=== PATIENT | female | born 1990 | race Caucasian/White ===

== ENCOUNTER 2016-12-13 01:33 | Emergency (ER) | payer MEDICAID ==
[2016-12-13] MEDS ORDERED: CEPHALEXIN 500 MG CAPSULE PO ONE (04:20)
[2016-12-13] MEDS ORDERED: DIPHENHYDRAMINE HCL 25 MG CAPSULE PO ONE (04:20)
[2016-12-13] MEDS ORDERED: FAMOTIDINE 20 MG TABLET PO ONE (04:20)
[2016-12-13 04:23] VITALS: BP 134/79
--- NOTE | 2016-12-13 04:23 | ER Document Report ---
HPI - HPI Patient complains to provider of: leg pain Pain Level: 2 Context: Patient is a 26-year-old female that comes emergency department for chief complaint of insect bite to her left calf area, this happened yesterday, patient states she immediately got hives of the area, states it has been itchy, states that he also had redness and some hardening to it and she became concerned. She denies any other symptoms including throat swelling, difficulty breathing, or fever, however she states that soon after she was stung or bitten she felt lightheaded and clammy. She did not see any insect, she was inside a house. Her tetanus is up-to-date. She denies any daily medications or past medical history. - CARDIOVASCULAR Cardiovascular: DENIES: Chest pain - REPRODUCTIVE LMP: 05/2016, PCOS Reproductive: DENIES: : - DERM Skin Color: Normal Past Medical History - General Information source: Patient - Social History Smoking Status: Never Smoker Chew tobacco use (# tins/day): No Frequency of alcohol use: None Drug Abuse: None Lives with: Family Family History: DM - Past Medical History Cardiac Medical History: Reports: Hx Hypertension Pulmonary Medical History: Reports: Hx Asthma Renal/ Medical History: Denies: Hx Peritoneal Dialysis Musculoskeltal Medical History: Reports Hx Arthritis Past Surgical History: Reports: Hx Gynecologic Surgery - D&C, Hx Orthopedic Surgery - lumbar disc - Immunizations Hx Diphtheria, Pertussis, Tetanus Vaccination: Yes Vertical Provider Document - CONSTITUTIONAL General Appearance: WD/WN, No Apparent Distress, Obese - INFECTION CONTROL TRAVEL OUTSIDE OF THE [place] IN LAST 30 DAYS: No - HEENT HEENT: Atraumatic, Normal ENT Exam, Normocephalic - RESPIRATORY Respiratory: Breath Sounds Normal, No Respiratory Distress O2 Sat by Pulse Oximetry: 94 - CARDIOVASCULAR Cardiovascular: Regular Rate, Regular Rhythm - GI/ABDOMEN Gastrointestinal: Abdomen Soft, Abdomen Non-Tender - BACK Back: Normal Inspection - MUSCULOSKELETAL/EXTREMETIES Musculoskeletal/Extremeties: Tender - There is an area on the left mid calf with mild erythema, small amount of raised erythematous skin (? tiny urticaria) , some excoriations over the site, no significant induration or fluctuance, normal lower extremity exam otherwise Course - Re-evaluation Re-evalutation: Patient with insect bite, slight elevation suggestive of fading hives, also has mild erythema to the area. No significant induration or fluctuance, area is suggestive of mild cellulitis with possible hives. Treating with antihistamines and Keflex as a result. Discussed follow-up, return precautions , patient states understanding and agreement - Vital Signs Vital signs: Temp Pulse Resp BP Pulse Ox 98.0 F 111 H 20 141/93 H 94 12/13/16 01:43 12/13/16 01:43 12/13/16 01:43 12/13/16 01:43 12/13/16 01:43 Discharge - Discharge Clinical Impression: Insect bite Qualifiers: Encounter type: initial encounter Qualified Code(s): W57.XXXA - Bitten or stung by nonvenomous insect and other nonvenomous arthropods, initial encounter Condition: Stable Disposition: HOME, SELF-CARE Additional Instructions: Exam is consistent with an insect sting or bite with a histamine response and questionable early cellulitis. Take the Keflex antibiotics as prescribed. The antihistamines as prescribed for 1 week. Avoid scratching the area. Primary care. Return for any concerning or worsening symptoms including increased redness, spreading redness, fever, or any other concerning symptoms. Prescriptions: Cephalexin Monohydrate [Keflex 500 mg Capsule] 500 mg PO QID #28 capsule Cetirizine HCl [Zyrtec 10 mg Tablet] 1 tab PO DAILY #30 tablet Famotidine [Pepcid 20 mg Tablet] 20 mg PO DAILY #12 tablet Forms: Parent Work Note
== END 2016-12-13 04:31 | disposition home or self-care (01) ==
LOC: ER 01:33
DX: S80.862A Insect bite (nonvenomous), left lower leg, initial encounter (principal); W57.XXXA Bitten or stung by nonvenomous insect and other nonvenomous arthropods, initial encounter; Y92.009 Unspecified place in unspecified non-institutional (private) residence as the place of occurrence of the external cause; I10 Essential (primary) hypertension; J45.909 Unspecified asthma, uncomplicated
CPT/HCPCS: 99282; J3490 ×2

== ENCOUNTER 2016-12-25 22:23 | Emergency (ER) | payer MEDICAID ==
--- NOTE | 2016-12-25 23:50 | ER Document Report ---
ED General - General Chief Complaint: Vaginal Bleeding Stated Complaint: VAGINAL BLEEDING Time Seen by Provider: 12/25/16 23:40 Notes: Patient is a 26-year-old female that comes emergency department for chief complaint of feeling tired and heavy vaginal bleeding for the past 3 weeks. She states she is feeling almost 10 had a day. She states that she had this previously, she has had extensive workups and was told that she has PCOS and needed to see a SPD TECH when she is still pending referral for. She has been transfused twice. She denies any pain, vomiting, fever, abnormal vaginal discharge. TRAVEL OUTSIDE OF THE [place] IN LAST 30 DAYS: No - Related Data Allergies/Adverse Reactions: codeine Allergy (Verified 12/13/16 01:46) Past Medical History - General Information source: Patient - Social History Smoking Status: Never Smoker Frequency of alcohol use: None Drug Abuse: None Lives with: Family Family History: DM - Past Medical History Cardiac Medical History: Reports: Hx Hypertension Pulmonary Medical History: Reports: Hx Asthma Renal/ Medical History: Denies: Hx Peritoneal Dialysis Musculoskeltal Medical History: Reports Hx Arthritis Past Surgical History: Reports: Hx Gynecologic Surgery - D&C, Hx Orthopedic Surgery - lumbar disc - Immunizations Hx Diphtheria, Pertussis, Tetanus Vaccination: Yes Review of Systems - Review of Systems Constitutional: See HPI EENT: No symptoms reported Cardiovascular: See HPI Respiratory: No symptoms reported Gastrointestinal: See HPI Genitourinary: See HPI Female Genitourinary: See HPI Musculoskeletal: No symptoms reported Skin: No symptoms reported Hematologic/Lymphatic: No symptoms reported Neurological/Psychological: No symptoms reported Physical Exam - Vital signs Vitals: Temp Pulse Resp BP Pulse Ox 98.8 F 108 H 20 149/102 H 99 12/25/16 22:47 12/25/16 22:47 12/25/16 22:47 12/25/16 22:47 12/25/16 22:47 Interpretation: Normal - General General appearance: Appears well, Alert In distress: None - HEENT Head: Normocephalic, Atraumatic Eyes: Normal Pupils: PERRL - Respiratory Respiratory status: No respiratory distress Chest status: Nontender Breath sounds: Normal. No: Decreased air movement, Wheezing Chest palpation: Normal - Cardiovascular Rhythm: Regular. No: Tachycardia - Patient is not tachycardic on my examination Heart sounds: Normal auscultation, S1 appreciated, S2 appreciated Murmur: No - Abdominal Inspection: Normal Distension: No distension Bowel sounds: Normal Tenderness: Nontender. No: Tender, Guarding - Soft and unremarkable abdominal examination Organomegaly: No organomegaly - Back Back: Normal, Nontender - Extremities General upper extremity: Normal inspection, Nontender, Normal color, Normal ROM , Normal temperature General lower extremity: Normal inspection, Nontender, Normal color, Normal ROM , Normal temperature, Normal weight bearing. No: Ty's sign - Neurological Neuro grossly intact: Yes Cognition: Normal Orientation: AAOx4 [place] Coma Scale Eye Opening: Spontaneous Rahul Coma Scale Verbal: Oriented [place] Coma Scale Motor: Obeys Commands [place] Coma Scale Total: 15 Speech: Normal Motor strength normal: LUE, RUE, LLE, RLE Sensory: Normal - Psychological Associated symptoms: Normal affect, Normal mood - Skin Skin Temperature: Warm Skin Moisture: Dry Skin Color: Normal Course - Re-evaluation Re-evalutation: CBC shows microcytic anemia with hemoglobin of 10.2. Mild leukocytosis, nonspecific with unremarkable vital signs, soft abdomen, and well-appearing patient. Urinalysis unremarkable. Chemistry unremarkable. Patient declines any additional evaluation, states she has had all of it before, states she was just here to get her hemoglobin checked for potential transfusion. Patient declines hormonal therapy to stop bleeding as well. She does agree to iron replacement therapy to help maintain her hemoglobin, states she will follow-up with SPD TECH, states she will return if she worsens. - Vital Signs Vital signs: Temp Pulse Resp BP Pulse Ox 98.8 F 78 18 137/87 H 98 12/25/16 22:47 12/26/16 01:23 12/26/16 01:23 12/26/16 01:23 12/26/16 01:23 - Laboratory Result Diagrams: 12/26/16 00:10 12/26/16 00:10 Laboratory results interpreted by me: 12/25/16 12/26/16 23:55 00:10 WBC 14.8 H Hgb 10.2 L Hct 33.3 L MCV 67 L MCH 20.5 L MCHC 30.7 L RDW 18.6 H Absolute Neutrophils 8.9 H Absolute Lymphocytes 4.8 H Urine Protein 30 H Urine Blood LARGE H Discharge - Discharge Clinical Impression: Vaginal bleeding Anemia Qualifiers: Anemia type: unspecified type Qualified Code(s): D64.9 - Anemia, unspecified Condition: Stable Disposition: HOME, SELF-CARE Additional Instructions: Your workup shows a hemoglobin of 10.2. Begin the iron, follow up with OBGYN. Return to the ED for any concerning or worsening symptoms - dizziness, passing out, fever, etc. Prescriptions: Ferrous Sulfate [Iron] 325 mg PO TID #30 tablet
[2016-12-26 00:33] LABS: APPEARANCE,URINE SLIGHTLY-CLOUDY; BILIRUBIN,URINE NEGATIVE (NEGATIVE); CALCIUM OXALATE CRYSTALS,URINE MANY /HPF; GLUCOSE, URINE NEGATIVE (NEGATIVE); KETONES,URINE NEGATIVE (NEGATIVE); LEUKOCYTE ESTERASE,URINE NEGATIVE (NEGATIVE); NITRITE,URINE NEGATIVE (NEGATIVE); PROTEIN,URINE 30 mg/dL (NEGATIVE); UROBILINOGEN,URINE NEGATIVE mg/dL (<2.0)
[2016-12-26 00:41] LABS: ABSOLUTE BASOPHILS # (AUTO) 0.1 10^3/uL (0.0-0.2); ABSOLUTE EOSINOPHILS # (AUTO) 0.3 10^3/uL (0.0-0.6); ABSOLUTE LYMPHOCYTES (AUTO) 4.8 10^3/uL (0.5-4.7); ABSOLUTE MONOCYTES (AUTO) 0.8 10^3/uL (0.1-1.4); ABSOLUTE NEUT (AUTO) 8.9 10^3/uL (1.7-8.2); BASOPHILS % (AUTO) 0.4 % (0-2); HEMATOCRIT 33.3 % (36.0-47.0); HEMOGLOBIN 10.2 g/dL (12.0-15.5); HGB HCT DIFFERENCE -2.7; LYMPHOCYTES % (AUTO) 32.2 % (13-45); MEAN CORPUSCULAR HEMOGLOBIN 20.5 pg (27.0-33.4); MEAN CORPUSCULAR HGB CONC 30.7 g/dL (32.0-36.0); MEAN CORPUSCULAR VOLUME 67 fl (80-97); MONOCYTES % (AUTO) 5.4 % (3-13); RED BLOOD COUNT 4.98 10^6/uL (3.72-5.28); RED CELL DISTRIBUTION WIDTH 18.6 % (11.5-14.0); WHITE BLOOD COUNT 14.8 10^3/uL (4.0-10.5)
[2016-12-26 00:51] LABS: ALANINE AMINOTRANSFERASE 22 U/L (9-52); ALBUMIN 3.7 g/dL (3.5-5.0); ALKALINE PHOSPHATASE 71 U/L (38-126); ANION GAP 11 (5-19); ASPARTATE AMINO TRANSFERASE 15 U/L (14-36); BILIRUBIN,DIRECT 0.3 mg/dL (0.0-0.4); BILIRUBIN,TOTAL 0.3 mg/dL (0.2-1.3); BLOOD UREA NITROGEN 10 mg/dL (7-20); CALCIUM 9.1 mg/dL (8.4-10.2); CARBON DIOXIDE 23 mmol/L (22-30); CHLORIDE 106 mmol/L (98-107); CREATININE RESULT 0.68 mg/dL (0.52-1.25); GLUCOSE 107 mg/dL (75-110); POTASSIUM 4.1 mmol/L (3.6-5.0); SODIUM 139.9 mmol/L (137-145); TOTAL PROTEIN 6.8 g/dL (6.3-8.2)
[2016-12-26 01:24] VITALS: BP 137/87
== END 2016-12-26 01:22 | disposition home or self-care (01) ==
LOC: ER 22:23
DX: N93.9 Abnormal uterine and vaginal bleeding, unspecified (principal); D50.9 Iron deficiency anemia, unspecified; D72.829 Elevated white blood cell count, unspecified; R53.83 Other fatigue; I10 Essential (primary) hypertension; J45.909 Unspecified asthma, uncomplicated
CPT/HCPCS: 36415; 80053; 81001; 81025; 85025; 99284

== ENCOUNTER 2016-12-31 23:19 | Emergency (ER) | payer MEDICAID ==
--- NOTE | 2017-01-01 01:24 | ER Document Report ---
ED Medical Screen (RME) - General Chief Complaint: Vaginal Bleeding Stated Complaint: VAGINAL BLEEDING Time Seen by Provider: 01/01/17 01:22 Mode of Arrival: Wheelchair Information source: Patient Notes: 26-year-old female presents to ED for menstrual bleeding 1 month. She states she has been to her PCN who is supposed to be making a referral to women's healthcare. She states that this happened before lasted about 5 months and she did not get the referral and she ended up needing 2 units of blood transfused. She said she is starting to feel the same way again she is feeling lightheaded. She states she was in the ER last week and her hemoglobin was 10.2. She states she has been going through about 12 pads a day with large clot and she is beginning to get more and more tired. I have greeted and performed a rapid initial assessment of this patient. A comprehensive ED assessment and evaluation of the patient, analysis of test results and completion of medical decision making process will be conducted by an additional ED providers. TRAVEL OUTSIDE OF THE [place] IN LAST 30 DAYS: No - Related Data Allergies/Adverse Reactions: codeine Allergy (Verified 01/01/17 00:16) Past Medical History - Past Medical History Cardiac Medical History: Reports: Hx Hypertension Pulmonary Medical History: Reports: Hx Asthma Renal/ Medical History: Denies: Hx Peritoneal Dialysis Musculoskeltal Medical History: Reports Hx Arthritis Past Surgical History: Reports: Hx Gynecologic Surgery - D&C, Hx Orthopedic Surgery - lumbar disc - Immunizations Hx Diphtheria, Pertussis, Tetanus Vaccination: Yes Physical Exam - Vital signs Vitals: Temp Pulse Resp BP Pulse Ox 97.8 F 94 16 134/96 H 100 01/01/17 00:10 01/01/17 00:10 01/01/17 00:10 01/01/17 00:10 01/01/17 00:10 Course - Vital Signs Vital signs: Temp Pulse Resp BP Pulse Ox 97.8 F 94 16 134/96 H 100 01/01/17 00:10 01/01/17 00:10 01/01/17 00:10 01/01/17 00:10 01/01/17 00:10
[2017-01-01 02:24] LABS: ALANINE AMINOTRANSFERASE 26 U/L (9-52); ALBUMIN 3.8 g/dL (3.5-5.0); ALKALINE PHOSPHATASE 70 U/L (38-126); ANION GAP 12 (5-19); ASPARTATE AMINO TRANSFERASE 15 U/L (14-36); BILIRUBIN,DIRECT 0.3 mg/dL (0.0-0.4); BILIRUBIN,TOTAL 0.4 mg/dL (0.2-1.3); BLOOD UREA NITROGEN 10 mg/dL (7-20); CALCIUM 9.2 mg/dL (8.4-10.2); CARBON DIOXIDE 22 mmol/L (22-30); CHLORIDE 105 mmol/L (98-107); CREATININE RESULT 0.74 mg/dL (0.52-1.25); GLUCOSE 100 mg/dL (75-110); POTASSIUM 4.6 mmol/L (3.6-5.0); SODIUM 138.7 mmol/L (137-145)
[2017-01-01 02:27] LABS: ABSOLUTE EOSINOPHILS # (AUTO) 0.3 10^3/uL (0.0-0.6); ABSOLUTE LYMPHOCYTES (AUTO) 3.9 10^3/uL (0.5-4.7); ABSOLUTE MONOCYTES (AUTO) 0.7 10^3/uL (0.1-1.4); ABSOLUTE NEUT (AUTO) 7.4 10^3/uL (1.7-8.2); BASOPHILS % (AUTO) 0.3 % (0-2); EOSINOPHILS % (AUTO) 2.8 % (0-6); HEMATOCRIT 31.3 % (36.0-47.0); HEMOGLOBIN 9.5 g/dL (12.0-15.5); HGB HCT DIFFERENCE -2.8; LYMPHOCYTES % (AUTO) 31.6 % (13-45); MEAN CORPUSCULAR HEMOGLOBIN 20.6 pg (27.0-33.4); MEAN CORPUSCULAR HGB CONC 30.5 g/dL (32.0-36.0); MEAN CORPUSCULAR VOLUME 68 fl (80-97); MONOCYTES % (AUTO) 5.3 % (3-13); RED BLOOD COUNT 4.63 10^6/uL (3.72-5.28); RED CELL DISTRIBUTION WIDTH 18.8 % (11.5-14.0); WHITE BLOOD COUNT 12.3 10^3/uL (4.0-10.5)
--- NOTE | 2017-01-01 03:31 | ER Document Report ---
ED GI/ - General Chief Complaint: Vaginal Bleeding Stated Complaint: VAGINAL BLEEDING Time Seen by Provider: 01/01/17 01:22 Mode of Arrival: Wheelchair Information source: Patient Notes: 26-year-old female presents to ED for menstrual bleeding 1 month. She states she has been to PCM who is supposed to be making a referral to [facility]. She states this has happened before and lasted about 5 months the last time. She states she never did get a referral to women's healthcare last time or this time. She states she starting to feel the same way she did the last time when she need blood transfusions. She has had this bleeding this time for about a month. She states that she was in the emergency room a week ago and her hemoglobin was 10.2. She states today she has been saturating about 12-13 pad with large clots. TRAVEL OUTSIDE OF THE [place] IN LAST 30 DAYS: No - HPI Patient complains to provider of: Pelvic pain, Vaginal bleeding Onset: Other - Month Timing/Duration: Intermittent Quality of pain: Cramping Severity at maximum: Severe Severity in ED: Moderate Pain Level: 3 Location: Pelvis Vaginal bleeding (Compared to normal period): Heavier Menstrual period history: Abnormal Associated symptoms: Lightheaded, Other - Fatigue Exacerbated by: Movement Relieved by: Denies Similar symptoms previously: Yes Recently seen / treated by doctor: Yes - Related Data Allergies/Adverse Reactions: codeine Allergy (Verified 01/01/17 00:16) Past Medical History - General Information source: Patient - Social History Smoking Status: Current Every Day Smoker Cigarette use (# per day): Yes - Half pack per day Chew tobacco use (# tins/day): No Smoking Education Provided: Yes - less than 1 minute Frequency of alcohol use: None Drug Abuse: None Occupation: none Lives with: Family Family History: Arthritis, CAD, COPD, CVA, DM, Hyperlipidemia, Hypertension. denies: Malignancy, Thyroid Disfunction Patient has suicidal ideation: No Patient has homicidal ideation: No - Past Medical History Cardiac Medical History: Reports: Hx Hypertension Pulmonary Medical History: Reports: Hx Asthma EENT Medical History: Reports: None Neurological Medical History: Reports: None Endocrine Medical History: Reports: None Renal/ Medical History: Reports: Hx Ovarian Cysts, Other - Abnormal menstrual periods Malignancy Medical History: Reports: None GI Medical History: Reports: None Musculoskeltal Medical History: Reports Hx Arthritis Skin Medical History: Reports None Psychiatric Medical History: Reports: None Traumatic Medical History: Reports: None Infectious Medical History: Reports: None Past Surgical History: Reports: Hx Gynecologic Surgery - D&C, Hx Orthopedic Surgery - lumbar disc - Immunizations Hx Diphtheria, Pertussis, Tetanus Vaccination: Yes Review of Systems - Review of Systems Constitutional: No symptoms reported EENT: No symptoms reported Cardiovascular: No symptoms reported Respiratory: No symptoms reported Gastrointestinal: No symptoms reported Genitourinary: No symptoms reported Female Genitourinary: Heavy/abnormal periods, Irregular period, Vaginal bleeding Musculoskeletal: No symptoms reported Skin: No symptoms reported Hematologic/Lymphatic: No symptoms reported Neurological/Psychological: No symptoms reported Physical Exam - Vital signs Vitals: Temp Pulse Resp BP Pulse Ox 97.8 F 94 16 134/96 H 100 01/01/17 00:10 01/01/17 00:10 01/01/17 00:10 01/01/17 00:10 01/01/17 00:10 Interpretation: Normal - General General appearance: Appears well, Alert - HEENT Head: Normocephalic, Atraumatic Eyes: Normal Pupils: PERRL - Respiratory Respiratory status: No respiratory distress Chest status: Nontender Breath sounds: Normal Chest palpation: Normal - Cardiovascular Rhythm: Regular Heart sounds: Normal auscultation Murmur: No - Abdominal Inspection: Normal Distension: No distension Bowel sounds: Normal Tenderness: Tender Organomegaly: No organomegaly - Back Back: Normal, Nontender - Extremities General upper extremity: Normal inspection, Nontender, Normal color, Normal ROM , Normal temperature General lower extremity: Normal inspection, Nontender, Normal color, Normal ROM , Normal temperature, Normal weight bearing. No: Ty's sign - Neurological Neuro grossly intact: Yes Cognition: Normal Orientation: AAOx4 Rahul Coma Scale Eye Opening: Spontaneous [place] Coma Scale Verbal: Oriented [place] Coma Scale Motor: Obeys Commands [place] Coma Scale Total: 15 Speech: Normal Motor strength normal: LUE, RUE, LLE, RLE Sensory: Normal - Psychological Associated symptoms: Normal affect, Normal mood - Skin Skin Temperature: Warm Skin Moisture: Dry Skin Color: Normal Course - Vital Signs Vital signs: Temp Pulse Resp BP Pulse Ox 97.8 F 86 20 130/90 H 99 01/01/17 00:10 01/01/17 03:52 01/01/17 03:52 01/01/17 03:52 01/01/17 03:52 - Laboratory Result Diagrams: 01/01/17 01:35 01/01/17 01:35 Laboratory results interpreted by me: 01/01/17 01:35 WBC 12.3 H Hgb 9.5 L Hct 31.3 L MCV 68 L MCH 20.6 L MCHC 30.5 L RDW 18.8 H Discharge - Discharge Clinical Impression: Vaginal bleeding Condition: Stable Disposition: HOME, SELF-CARE Additional Instructions: VAGINAL BLEEDING: You are having an episode of abnormal bleeding. Causes of abnormal vaginal bleeding can include miscarriage or tubal , tumors such as cancer or benign fibroids, medication effects, or hormone imbalance. Testing can eliminate unsuspected , tumors, or infection as a cause. "Dysfunctional uterine bleeding" is due to hormone imbalance, and is especially common at times when the normal cycle is disturbed -- whether by recent , use of control pills or hormones, or impending menopause. If the bleeding is innocent, most commonly a short course of hormones is given to restore the uterus to normal. Sometimes, the normal menstrual cycle corrects itself naturally. Sometimes , brief hormone therapy, or even a D&C is required. Your physician will advise you. Treatment for anemia may be required if bleeding is severe. You should rest and avoid intercourse until the bleeding is controlled. Call the doctor or return for re-examination if you feel faint, have increasing pain, or have a major increase in the amount of bleeding. Acetaminophen Acetaminophen may be taken for pain relief or fever control. It's much safer than aspirin, offering a wider range of "safe" dosages. It is safe during . Some brand names are Tylenol, Panadol, Datril, Anacin 3, Tempra, and Liquiprin. Acetaminophen can be repeated every four hours. The following are maximum recommended dosages: WEIGHT Dose Drops Elixir Chewable( 80mg) (LBS.) drprs=droppers tsp=teaspoon 6 40 mg .4 ml (1/2) 6-11 80 mg .8 ml (full) 1/2 tsp 1 tab 12-16 120 mg 1 1/2 drprs 3/4 tsp 1 1/2 tabs 17-23 160 mg 2 drprs 1 tsp 2 tabs 24-30 240 mg 3 drprs 1 1/2 tsp 3 tabs 30-35 320 mg 2 tsp 4 tabs 36-41 360 mg 2 1/4 tsp 4 1 /2 tabs 42-47 400 mg 2 1/2 tsp 5 tabs 48-53 480 mg 3 tsp 6 tabs 54-59 520 mg 3 1/4 tsp 6 1 /2 tabs 60-64 560 mg 3 1/2 tsp 7 tabs 65-70 600 mg 3 3/4 tsp 7 1 /2 tabs 71-76 640 mg 4 tsp 8 tabs 77-82 720 mg 4 1/2 tsp 9 tabs 83-88 800 mg 5 tsp 10 tabs >89 pounds or adults 650 mg to 900 mg Acetaminophen can be repeated every four hours. Maximum daily dose not to exceed 4000 mg. These maximum recommended dosages are slightly higher than the dosages written on the product container, but these dosages are very safe and well below the toxic dosage for acetaminophen. NORMAL EXAM AND WORKUP: At this time, except for vaginal bleeding, your examination and workup show no significant abnormality. No significant abnormal physical findings were noted. All laboratory, EKG, and imaging (x-ray, CT scans, ultrasound) studies that were ordered show no significant abnormality. Although your examination and all studies that were ordered showed no significant abnormal finding, there are no examinations and no studies that are 100% accurate. There is always the possibility that some abnormality could exist and not be detected with physical examination or within the limits and capabilities of laboratory and other studies. You should return or follow up as you were instructed on your visit today for further evaluation if your symptoms do not resolve. Discussed with you in a written copy of the report given to you to follow-up with your primary doctor. He will need to follow-up with [facility] [employer] PROF[employer]OR for this continued vaginal bleeding. Call your primary doctor in the morning and discussed these results with her. FOLLOW-UP CARE: If you have been referred to a physician for follow-up care, call the physician s office for an appointment as you were instructed or within the next two days. If you experience worsening or a significant change in your symptoms (very heavy bleeding with large clots of blood, passage of tissue, more severe abdominal / pelvic pain or cramping, feeling faint or severe weakness, fever, etc.), notify the physician immediately or return to the Emergency Department at any time for re-evaluation. OBSTETRIC-GYNECOLOGIC (OB-PATTERN ASSEMBLER) PHYSICIANS IN [place]: [facility] [address] [place] [address] [phone] Forms: Elevated Blood Pressure, Smoking Cessation Education Referrals: KIM GARCIA PA-C [NO LOCAL MD] - Follow up as needed
[2017-01-01 03:53] VITALS: BP 130/90
== END 2017-01-01 03:52 | disposition home or self-care (01) ==
LOC: ER 23:19
DX: N92.1 Excessive and frequent menstruation with irregular cycle (principal); R10.2 Pelvic and perineal pain; R42 Dizziness and giddiness; R53.83 Other fatigue; I10 Essential (primary) hypertension; J45.909 Unspecified asthma, uncomplicated; F17.210 Nicotine dependence, cigarettes, uncomplicated; Z71.6 Tobacco abuse counseling; Z87.42 Personal history of other diseases of the female genital tract; Z98.890 Other specified postprocedural states
CPT/HCPCS: 36415; 80053; 84703; 85025; 99284

== ENCOUNTER 2017-01-06 20:34 | Emergency (ER) | payer MEDICAID ==
[2017-01-06 22:10] LABS: ABSOLUTE EOSINOPHILS # (AUTO) 0.2 10^3/uL (0.0-0.6); ABSOLUTE MONOCYTES (AUTO) 0.5 10^3/uL (0.1-1.4); ABSOLUTE NEUT (AUTO) 8.1 10^3/uL (1.7-8.2); BASOPHILS % (AUTO) 0.5 % (0-2); EOSINOPHILS % (AUTO) 1.8 % (0-6); HEMATOCRIT 28.3 % (36.0-47.0); HEMOGLOBIN 8.6 g/dL (12.0-15.5); HGB HCT DIFFERENCE -2.5; LYMPHOCYTES % (AUTO) 18.2 % (13-45); MEAN CORPUSCULAR HEMOGLOBIN 20.7 pg (27.0-33.4); MEAN CORPUSCULAR HGB CONC 30.5 g/dL (32.0-36.0); MEAN CORPUSCULAR VOLUME 68 fl (80-97); MONOCYTES % (AUTO) 4.9 % (3-13); RED BLOOD COUNT 4.17 10^6/uL (3.72-5.28); RED CELL DISTRIBUTION WIDTH 18.8 % (11.5-14.0); SEGMENTED NEUTROPHILS % (AUTO) 74.6 % (42-78); WHITE BLOOD COUNT 10.9 10^3/uL (4.0-10.5)
[2017-01-06 22:24] LABS: ANION GAP 9 (5-19); BLOOD UREA NITROGEN 6 mg/dL (7-20); CALCIUM 9.1 mg/dL (8.4-10.2); CARBON DIOXIDE 23 mmol/L (22-30); CHLORIDE 106 mmol/L (98-107); CREATININE RESULT 0.64 mg/dL (0.52-1.25); GLUCOSE 106 mg/dL (75-110); POTASSIUM 3.9 mmol/L (3.6-5.0); SODIUM 138.1 mmol/L (137-145)
--- NOTE | 2017-01-06 22:51 | ER Document Report ---
ED General - General Chief Complaint: Vaginal Bleeding Stated Complaint: VAGINAL BLEEDING Time Seen by Provider: 01/06/17 22:10 Notes: Patient is a 26-year-old female with past medical history of morbid obesity, polycystic ovarian syndrome, dysfunctional uterine bleeding who presents with 1 month of vaginal bleeding. She has been evaluated repeatedly in the emergency department for the same complaint with a downtrending of her hemoglobin. She has had similar presentations in the past that have required blood transfusions. States that she has tried control pills as well as a D&C in the past which have not been able to control her persistent vaginal bleeding. She does note a mild, dull, cramping lower abdominal pain which is unchanged today. States she is going through approximately 10 pads daily but has not gone through more than 2 pads an hour at any point. She denies any lightheadedness or syncope. She is currently taking iron supplementation. She has not seen [facility] regarding today's concerns. She does also complain of a bilateral throat pain that is dull, scratching and irritating. She is requesting that this also be evaluated while she is here. TRAVEL OUTSIDE OF THE [place] IN LAST 30 DAYS: No - Related Data Allergies/Adverse Reactions: codeine Allergy (Verified 01/06/17 20:54) Past Medical History - General Information source: Patient - Social History Smoking Status: Never Smoker Frequency of alcohol use: None Drug Abuse: None Lives with: Spouse/Significant other Family History: Arthritis, CAD, COPD, CVA, DM, Hyperlipidemia, Hypertension. denies: Malignancy, Thyroid Disfunction - Past Medical History Cardiac Medical History: Reports: Hx Hypertension Pulmonary Medical History: Reports: Hx Asthma Renal/ Medical History: Reports: Hx Ovarian Cysts. Denies: Hx Peritoneal Dialysis Musculoskeltal Medical History: Reports Hx Arthritis Past Surgical History: Reports: Hx Gynecologic Surgery - D&C, Hx Orthopedic Surgery - lumbar disc - Immunizations Hx Diphtheria, Pertussis, Tetanus Vaccination: Yes Review of Systems - Review of Systems Notes: Constitutional: Negative for fever. HENT: Positive for sore throat. Eyes: Negative for visual changes. Cardiovascular: Negative for chest pain. Respiratory: Negative for shortness of breath. Gastrointestinal: Negative for abdominal pain, vomiting or diarrhea. Genitourinary: Positive for vaginal bleeding Musculoskeletal: Negative for back pain. Skin: Negative for rash. Neurological: Negative for headaches, weakness or numbness. 10 point ROS negative except as marked above and in HPI. Physical Exam - Vital signs Vitals: Temp Pulse Resp BP Pulse Ox 97.9 F 95 19 138/76 H 96 01/07/17 00:18 01/07/17 00:18 01/07/17 00:18 01/07/17 00:18 01/07/17 00:18 Interpretation: Normal Notes: PHYSICAL EXAMINATION: GENERAL: Morbidly obese female well-appearing, well-nourished and in no acute distress. HEAD: Atraumatic, normocephalic. EYES: Pupils equal round and reactive to light, extraocular movements intact, sclera anicteric, conjunctiva are normal. ENT: nares patent, bilateral tonsillar exudates and mild hypertrophy. NECK: Normal range of motion, bilateral anterior cervical lymphadenopathy that is tender to palpation LUNGS: Breath sounds clear to auscultation bilaterally and equal. No wheezes rales or rhonchi. HEART: Regular rate and rhythm without murmurs ABDOMEN: Soft, nontender, normoactive bowel sounds. No guarding, no rebound. No masses appreciated. EXTREMITIES: Normal range of motion, no pitting or edema. No cyanosis. NEUROLOGICAL: No focal neurological deficits. Moves all extremities spontaneously and on command. PSYCH: Normal mood, normal affect. SKIN: Warm, Dry, normal turgor, no rashes or lesions noted. Course - Re-evaluation Re-evalutation: 01/06/17 22:50 Presentation is most consistent with dysfunctional uterine bleeding and otherwise well-appearing patient. Hemoglobin has continued to downtrend to 8.6 at this time. States she has failed oral control pills in the past as well as a D&C per her report. She is not . No tachycardia or hypotension. Examination is otherwise unremarkable. She denies bleeding through more than 2 pads an hour at any point in time. She does have scant vaginal bleeding at this time which she states has been baseline. Patient did also complain of a sore throat. Rapid strep is negative. History and exam are not consistent with a retropharyngeal abscess or peritonsillar abscess. Airway is patent. No difficulty handling oral secretions. Vitals within normal limits. Will also start the patient on a dose of oral control pills , restart her metformin for PCOS. I have discussed the case with Dr. Bah [employer] on-call who has requested the patient follow-up in the office on Sunday and I have asked the patient to contact clinic for an appointment. At this time will discharge with return precautions and follow-up recommendations. Verbal discharge instructions given a the bedside and opportunity for questions given. Medication warnings reviewed. Patient is in agreement with this plan and has verbalized understanding of return precautions and the need for primary care follow-up in the next 24-72 hours. - Vital Signs Vital signs: Temp Pulse Resp BP Pulse Ox 97.9 F 95 19 138/76 H 96 01/07/17 00:18 01/07/17 00:18 01/07/17 00:18 01/07/17 00:18 01/07/17 00:18 - Laboratory Result Diagrams: 01/06/17 21:55 01/06/17 21:55 Laboratory results interpreted by me: 01/06/17 01/06/17 21:55 21:55 WBC 10.9 H Hgb 8.6 L Hct 28.3 L MCV 68 L MCH 20.7 L MCHC 30.5 L RDW 18.8 H BUN 6 L Discharge - Discharge Clinical Impression: Sore throat, Dysfunctional uterine bleeding Condition: Good Disposition: HOME, SELF-CARE Additional Instructions: You were seen today for dysfunctional uterine bleeding. This is when you have vaginal bleeding and abdominal cramping off of your normal menstrual cycle. You have been started on control pills to help regulate your cycle and control your symptoms. Please call the women's clinic on Sunday and tell them that Dr. Bah requested that you be seen early next week. Return immediately if you worsening pain, you began bleeding through more than 2 pads per hour for more than 3 hours, you pass out, have persistent vomiting, develop a fever greater than 100.4F, or any other symptoms that are concerning to you. Prescriptions: Metformin HCl 500 mg PO BID #60 tablet Norgestimate-Ethinyl Estradiol [Sprintec 28 Day Tablet] 1 each PO DAILY #2 packet
[2017-01-07 00:19] VITALS: BP 138/76
== END 2017-01-07 00:18 | disposition home or self-care (01) ==
LOC: ER 20:34
DX: J02.9 Acute pharyngitis, unspecified (principal); N93.8 Other specified abnormal uterine and vaginal bleeding
CPT/HCPCS: 36415; 80048; 84703; 85025; 87070; 87077; 87880; 99284

== ENCOUNTER 2017-01-07 22:18 | Emergency (ER) | payer MEDICAID ==
--- NOTE | 2017-01-07 23:57 | ER Document Report ---
ED General - General Chief Complaint: Vaginal Bleeding Stated Complaint: VAGINAL BLEEDING Time Seen by Provider: 01/07/17 23:45 Notes: Patient is a 26-year-old female who comes emergency department for chief complaint of vaginal bleeding and an episode of syncope. She states that she got into a truck, she was feeling lightheaded when she got in, and she passed out for a couple of minutes. Significant other at bedside states he saw her " go out for a couple of minutes". She states that when she stands she feels lightheaded. She has had ongoing dysfunctional uterine bleeding for over a month, this is not new for her, she has a history of PCOS. she was evaluated here yesterday, told to follow-up with [facility] on Sunday, was prescribed Sprintec and metformin which she has not filled yet. TRAVEL OUTSIDE OF THE [place] IN LAST 30 DAYS: No - Related Data Allergies/Adverse Reactions: codeine Allergy (Verified 01/08/17 00:41) Past Medical History - General Information source: Patient - Social History Smoking Status: Never Smoker Frequency of alcohol use: None Drug Abuse: None Lives with: Family Family History: Arthritis, CAD, COPD, CVA, DM, Hyperlipidemia, Hypertension. denies: Malignancy, Thyroid Disfunction - Past Medical History Cardiac Medical History: Reports: Hx Hypertension Pulmonary Medical History: Reports: Hx Asthma Renal/ Medical History: Reports: Hx Ovarian Cysts. Denies: Hx Peritoneal Dialysis Musculoskeltal Medical History: Reports Hx Arthritis Past Surgical History: Reports: Hx Gynecologic Surgery - D&C, Hx Orthopedic Surgery - lumbar disc - Immunizations Hx Diphtheria, Pertussis, Tetanus Vaccination: Yes Review of Systems - Review of Systems Constitutional: No symptoms reported EENT: No symptoms reported Cardiovascular: See HPI Respiratory: No symptoms reported Gastrointestinal: No symptoms reported Genitourinary: No symptoms reported Female Genitourinary: No symptoms reported Musculoskeletal: No symptoms reported Skin: No symptoms reported Hematologic/Lymphatic: No symptoms reported Neurological/Psychological: No symptoms reported Physical Exam - Vital signs Vitals: Temp Pulse Resp BP Pulse Ox 98.7 F 97 23 H 146/96 H 99 01/07/17 23:07 01/07/17 23:07 01/07/17 23:07 01/07/17 23:07 01/07/17 23:07 Interpretation: Normal - General General appearance: Appears well, Alert In distress: None - HEENT Head: Normocephalic, Atraumatic Eyes: Normal Extraocular movements intact: Yes Eyelashes: Normal Pupils: PERRL Mouth/Lips: Normal Mucous membranes: Normal Pharynx: Normal Neck: Normal - Respiratory Respiratory status: No respiratory distress Chest status: Nontender Breath sounds: Normal Chest palpation: Normal - Cardiovascular Rhythm: Regular. No: Tachycardia Heart sounds: Normal auscultation, S1 appreciated, S2 appreciated Murmur: No - Abdominal Inspection: Normal Distension: No distension Bowel sounds: Normal Tenderness: Nontender Organomegaly: No organomegaly - Back Back: Normal, Nontender - Extremities General upper extremity: Normal inspection, Nontender, Normal color, Normal ROM , Normal temperature General lower extremity: Normal inspection, Nontender, Normal color, Normal ROM , Normal temperature, Normal weight bearing. No: Ty's sign - Neurological Neuro grossly intact: Yes Cognition: Normal Orientation: AAOx4 [place] Coma Scale Eye Opening: Spontaneous [place] Coma Scale Verbal: Oriented [place] Coma Scale Motor: Obeys Commands Rahul Coma Scale Total: 15 Speech: Normal Motor strength normal: LUE, RUE, LLE, RLE Sensory: Normal - Psychological Associated symptoms: Normal affect, Normal mood - Skin Skin Temperature: Warm Skin Moisture: Dry Skin Color: Normal Course - Re-evaluation Re-evalutation: EKG sinus rhythm with normal SD interval. Patient's description of syncopal episode is strange, almost sounds like she fell asleep. Patient was seen within the past 48 hours. Hemoglobin has only downtrending from 8.6-8.4. Patient is normotensive, not tachycardic, alert and well- appearing and cooperates with a normal exam. Chemistry unremarkable. She is not . Patient has not started taking the Sprintec, metformin, and she has a follow-up appointment which was discussed with [facility] planned for tomorrow when she was supposed to call for it. No interventions necessary at this time, she needs to follow-up with [facility], fill her scripts, and return if symptoms worsen. I did discuss with Dr. Murray. I discussed with patient and significant other in detail. They state understanding and agreement. - Vital Signs Vital signs: Temp Pulse Resp BP Pulse Ox 98.0 F 83 18 144/85 H 100 01/08/17 01:45 01/08/17 01:45 01/08/17 01:45 01/08/17 01:45 01/08/17 01:45 - Laboratory Result Diagrams: 01/08/17 00:25 01/08/17 00:25 Laboratory results interpreted by me: 01/08/17 00:25 WBC 11.2 H Hgb 8.4 L Hct 28.1 L MCV 68 L MCH 20.3 L MCHC 30.0 L RDW 18.7 H Discharge - Discharge Clinical Impression: Dysfunctional uterine bleeding Anemia Qualifiers: Anemia type: unspecified type Qualified Code(s): D64.9 - Anemia, unspecified Episode of syncope Qualifiers: Syncope type: unspecified Qualified Code(s): R55 - Syncope and collapse Condition: Stable Disposition: HOME, SELF-CARE Additional Instructions: Your vital signs, EKG, exam, and workup did not show any concerning abnormality. Your hemoglobin has not yet reached a concerningly low level. Take both the Sprintec and the metformin as prescribed. Stay hydrated, perform slow position changes to avoid passing out. Follow-up tomorrow with [facility], see referral, call early tomorrow morning to arrange her appointment. Return to emergency department for any concerning or worsening symptoms. Referrals: JUDY FOSS MD [ACTIVE STAFF] - Follow up tomorrow
[2017-01-08 00:53] LABS: ABSOLUTE EOSINOPHILS # (AUTO) 0.3 10^3/uL (0.0-0.6); ABSOLUTE LYMPHOCYTES (AUTO) 3.4 10^3/uL (0.5-4.7); ABSOLUTE MONOCYTES (AUTO) 0.8 10^3/uL (0.1-1.4); ABSOLUTE NEUT (AUTO) 6.6 10^3/uL (1.7-8.2); BASOPHILS % (AUTO) 0.3 % (0-2); EOSINOPHILS % (AUTO) 2.8 % (0-6); HEMATOCRIT 28.1 % (36.0-47.0); HEMOGLOBIN 8.4 g/dL (12.0-15.5); HGB HCT DIFFERENCE -2.9; LYMPHOCYTES % (AUTO) 30.6 % (13-45); MEAN CORPUSCULAR HEMOGLOBIN 20.3 pg (27.0-33.4); MEAN CORPUSCULAR VOLUME 68 fl (80-97); MONOCYTES % (AUTO) 7.1 % (3-13); RED BLOOD COUNT 4.16 10^6/uL (3.72-5.28); RED CELL DISTRIBUTION WIDTH 18.7 % (11.5-14.0); SEGMENTED NEUTROPHILS % (AUTO) 59.2 % (42-78); WHITE BLOOD COUNT 11.2 10^3/uL (4.0-10.5)
[2017-01-08 01:11] LABS: ANION GAP 11 (5-19); BLOOD UREA NITROGEN 7 mg/dL (7-20); CALCIUM 8.9 mg/dL (8.4-10.2); CARBON DIOXIDE 26 mmol/L (22-30); CHLORIDE 104 mmol/L (98-107); CREATININE RESULT 0.62 mg/dL (0.52-1.25); GLUCOSE 90 mg/dL (75-110); POTASSIUM 4.4 mmol/L (3.6-5.0); SODIUM 140.5 mmol/L (137-145)
[2017-01-08 02:03] VITALS: BP 144/85
--- NOTE | 2017-01-08 04:45 | EKG REPORT ---
SEVERITY:- NORMAL ECG - SINUS RHYTHM : Confirmed by: Miguel Santamaria MD 08-Jan-2017 04:21:36
== END 2017-01-08 01:55 | disposition home or self-care (01) ==
LOC: ER 22:18
DX: N93.8 Other specified abnormal uterine and vaginal bleeding (principal); D64.9 Anemia, unspecified; R55 Syncope and collapse; I10 Essential (primary) hypertension; J45.909 Unspecified asthma, uncomplicated; Z88.5 Allergy status to narcotic agent
CPT/HCPCS: 36415; 80048; 84703; 85025; 86850; 86870; 86900; 86901; 93005; 93010; 99284

== ENCOUNTER 2017-01-10 00:28 | Emergency (ER) | payer MEDICAID ==
[2017-01-10] MEDS ORDERED: TRANEXAMIC ACID INJ/PF 1,000 MG/10 ML SDV IV ONE (01:44)
--- NOTE | 2017-01-10 01:48 | ER Document Report ---
ED General - General Chief Complaint: Vaginal Bleeding Stated Complaint: WEAKNESS Time Seen by Provider: 01/10/17 01:37 Notes: Patient is a 26-year-old female who presents with complaint of continued vaginal bleeding and some weakness. She has anemia. She has been seen her many times over last several weeks for this. She has been referred to gynecology several times. She has not made any appointments that we have made for her. She says she has not made his appointments because her has a car and has to go to work. She also has not filled any of her prescriptions. She was prescribed some tach last time. She did not get this filled. She denies any recurrent syncopal episodes. She has no other complaints at this time. TRAVEL OUTSIDE OF THE [place] IN LAST 30 DAYS: No - Related Data Allergies/Adverse Reactions: codeine Allergy (Verified 01/08/17 00:41) Past Medical History - Social History Smoking Status: Unknown if Ever Smoked Frequency of alcohol use: None Drug Abuse: None Family History: Arthritis, CAD, COPD, CVA, DM, Hyperlipidemia, Hypertension. denies: Malignancy, Thyroid Disfunction Patient has suicidal ideation: No Patient has homicidal ideation: No - Past Medical History Cardiac Medical History: Reports: Hx Hypertension Pulmonary Medical History: Reports: Hx Asthma Renal/ Medical History: Reports: Hx Ovarian Cysts. Denies: Hx Peritoneal Dialysis Musculoskeltal Medical History: Reports Hx Arthritis Past Surgical History: Reports: Hx Gynecologic Surgery - D&C, Hx Orthopedic Surgery - lumbar disc - Immunizations Hx Diphtheria, Pertussis, Tetanus Vaccination: Yes Review of Systems - Review of Systems Notes: My Normal Review Basic REVIEW OF SYSTEMS: CONSTITUTIONAL : Denies fever, chills, or sweats. Denies recent illness. RESPIRATORY: Denies cough, cold, or chest congestion. Denies shortness of breath, difficulty breathing, or wheezing. GASTROINTESTINAL: Denies abdominal pain. Denies nausea, vomiting, or diarrhea. Denies constipation. Last BM: GENITOURINARY: Denies difficulty urinating, painful urination, burning, frequency, or blood in urine. FEMALE GENITOURINARY: Vaginal bleeding. MUSCULOSKELETAL: Denies neck or back pain or joint pain or swelling. SKIN: Denies rash or skin lesions. NEUROLOGICAL: Denies altered mental status or loss of consciousness. Denies headache. Denies weakness or paralysis or loss of use of either side. Denies problems with gait or speech. Denies sensory or motor loss.. ALL OTHER SYSTEMS REVIEWED AND NEGATIVE. Physical Exam - Vital signs Vitals: Temp Pulse Resp BP Pulse Ox 97.7 F 111 H 20 149/101 H 100 01/10/17 00:33 01/10/17 00:33 01/10/17 00:33 01/10/17 00:33 01/10/17 00:33 - Notes Notes: General Appearance: Well nourished, alert, cooperative, no acute distress, no obvious discomfort. Well appearing. Vitals: reviewed, See vital signs table. Head: no swelling or tenderness to the head Eyes: PERRL, EOMI, Conjuctiva clear Heart: Normal rate, Regular rythm, No murmur, no rub Abdomen: Normal BS, soft, No rigidity, mild suprapubic abdominal tenderness to palpation, No guarding, no rebound, no abdominal masses, no organomegaly Pelvic exam: Normal external genitalia. Some blood in vaginal vault. No active large hemorrhage. No clots. Extremities: strength 5/5 in all extremities, good pulses in all extremities, no swelling or tenderness in the extremities, no edema. Skin: warm, dry, appropriate color, no rash Neuro: speech clear, oriented x 3, normal affect, responds appropriately to questions. Course - Re-evaluation Re-evalutation: 01/10/17 01:48 Being that the patient's has had ongoing bleeding is been unable to fill her control did talk to her about the option of the double shot. Also talked about tranexamic acid. Currently patient says she wants to hold off on the Depo shot as she does want to get soon in the future. I did explain that the tranexamic acid does have some low risk to clotting such as DVT or PE. Patient is understanding of this risk and still is okay with receiving the medication. 01/10/17 05:22 Patient's hemoglobin is actually increased since her last visit. She did have some vaginal bleeding on exam. No passing of clots. I did speak with her and her . She says she has had some dizziness but no worse than before. No further syncopal episodes. Her is now off work and he said she would he would take her to the telephone services sales representative tomorrow. He would also be able to fill her prescription for the control tomorrow as well. I encouraged him to return to the ER if she has worsening of her symptoms, worsening bleeding, recurrent passing out episodes, difficulty breathing, or she feels unwell. Patient agrees with plan will be discharged home. Dictation of this chart was performed using voice recognition software; therefore, there may be some unintended grammatical errors. - Vital Signs Vital signs: Temp Pulse Resp BP Pulse Ox 97.7 F 33 L 18 111/75 98 01/10/17 00:33 01/10/17 03:46 01/10/17 03:46 01/10/17 03:46 01/10/17 03:46 - Laboratory Result Diagrams: 01/10/17 02:12 Laboratory results interpreted by me: 01/10/17 02:12 WBC 14.9 H Hgb 8.6 L Hct 28.1 L MCV 67 L MCH 20.5 L MCHC 30.5 L RDW 18.7 H Plt Count 500 H Absolute Neutrophils 9.5 H Discharge - Discharge Clinical Impression: Vaginal bleeding Condition: Good Disposition: HOME, SELF-CARE Additional Instructions: [facility] for a close follow up appointment. Please return to the ER immediately if you have episodes of passing out, feel short of breath, or feel that your dizziness and symptoms are worsening. Your hemoglobin today is 8.6. Please fill your prescription for the control. Referrals: KIKI BARTLETT DO [TIE PRESSER] - 01/10/17
[2017-01-10 02:24] LABS: ABSOLUTE BASOPHILS # (AUTO) 0.1 10^3/uL (0.0-0.2); ABSOLUTE EOSINOPHILS # (AUTO) 0.3 10^3/uL (0.0-0.6); ABSOLUTE LYMPHOCYTES (AUTO) 4.2 10^3/uL (0.5-4.7); ABSOLUTE MONOCYTES (AUTO) 0.9 10^3/uL (0.1-1.4); ABSOLUTE NEUT (AUTO) 9.5 10^3/uL (1.7-8.2); BASOPHILS % (AUTO) 0.5 % (0-2); HEMATOCRIT 28.1 % (36.0-47.0); HEMOGLOBIN 8.6 g/dL (12.0-15.5); HGB HCT DIFFERENCE -2.3; LYMPHOCYTES % (AUTO) 28.2 % (13-45); MEAN CORPUSCULAR HEMOGLOBIN 20.5 pg (27.0-33.4); MEAN CORPUSCULAR HGB CONC 30.5 g/dL (32.0-36.0); MEAN CORPUSCULAR VOLUME 67 fl (80-97); MONOCYTES % (AUTO) 5.8 % (3-13); RED BLOOD COUNT 4.18 10^6/uL (3.72-5.28); RED CELL DISTRIBUTION WIDTH 18.7 % (11.5-14.0); SEGMENTED NEUTROPHILS % (AUTO) 63.5 % (42-78); WHITE BLOOD COUNT 14.9 10^3/uL (4.0-10.5)
[2017-01-10 03:46] VITALS: BP 111/75
== END 2017-01-10 03:40 | disposition home or self-care (01) ==
LOC: ER 00:28
DX: N93.9 Abnormal uterine and vaginal bleeding, unspecified (principal); D64.9 Anemia, unspecified; T38.4X6A Underdosing of oral contraceptives, initial encounter; Z91.128 Patient's intentional underdosing of medication regimen for other reason; Z91.14 Patient's other noncompliance with medication regimen; R53.1 Weakness; R42 Dizziness and giddiness; I10 Essential (primary) hypertension; Z88.5 Allergy status to narcotic agent; J45.909 Unspecified asthma, uncomplicated; Z98.890 Other specified postprocedural states
CPT/HCPCS: 99284; 96374; 36415; 85025; J3490

== ENCOUNTER 2017-01-16 00:23 | Emergency (ER) | payer MEDICAID ==
--- NOTE | 2017-01-16 01:16 | ER Document Report ---
ED GI/ - General Chief Complaint: Vaginal Bleeding Stated Complaint: VAGINAL BLEEDING Time Seen by Provider: 01/16/17 01:12 Notes: The patient is a 26-year-old female, past medical history menorrhagia, presents with 6 weeks of vaginal bleeding. She has been seen multiple times in the emergency room for similar symptoms. She saw her OB 3 days ago, started on 5 mg Provera for 5 days and was told to come back to the emergency room if she begins to have worsening bleeding. She denies dysuria, nausea, vomiting, syncope, chest pain, shortness of breath or headache. TRAVEL OUTSIDE OF THE [place] IN LAST 30 DAYS: No - Related Data Allergies/Adverse Reactions: codeine Allergy (Verified 01/08/17 00:41) Past Medical History - General Information source: Patient - Social History Smoking Status: Unknown if Ever Smoked Family History: Arthritis, CAD, COPD, CVA, DM, Hyperlipidemia, Hypertension. denies: Malignancy, Thyroid Disfunction - Past Medical History Cardiac Medical History: Reports: Hx Hypertension Pulmonary Medical History: Reports: Hx Asthma Renal/ Medical History: Reports: Hx Ovarian Cysts. Denies: Hx Peritoneal Dialysis Musculoskeltal Medical History: Reports Hx Arthritis Past Surgical History: Reports: Hx Gynecologic Surgery - D&C, Hx Orthopedic Surgery - lumbar disc - Immunizations Hx Diphtheria, Pertussis, Tetanus Vaccination: Yes Review of Systems - Review of Systems Notes: REVIEW OF SYSTEMS: CONSTITUTIONAL: -fevers, -chills EENT: -eye pain, -difficulty swallowing, -nasal congestion CARDIOVASCULAR:-chest pain, -syncope. RESPIRATORY: -cough, -SOB GASTROINTESTINAL: -abdominal pain, -nausea, -vomiting, -diarrhea GENITOURINARY: -dysuria, -hematuria, +vaginal bleeding MUSCULOSKELETAL: -back pain, -neck pain SKIN: -rash or skin lesions. HEMATOLOGIC: -easy bruising or bleeding. LYMPHATIC: -swollen, enlarged glands. NEUROLOGICAL: -altered mental status or loss of consciousness, -headache, - neurologic symptoms PSYCHIATRIC: -anxiety, -depression. ALL OTHER SYSTEMS REVIEWED AND NEGATIVE. Physical Exam - Vital signs Vitals: Temp Pulse Resp BP Pulse Ox 98.5 F 93 16 145/80 H 98 01/16/17 00:52 01/16/17 00:52 01/16/17 00:52 01/16/17 00:52 01/16/17 00:52 - Notes Notes: PHYSICAL EXAMINATION: GENERAL: Well-appearing, well-nourished and in no acute distress. HEAD: Atraumatic, normocephalic. EYES: Pupils equal round and reactive to light, extraocular movements intact, sclera anicteric, conjunctiva are normal. ENT: nares patent, oropharynx clear without exudates. Moist mucous membranes. NECK: Normal range of motion, supple without lymphadenopathy LUNGS: Breath sounds clear to auscultation bilaterally and equal. No wheezes rales or rhonchi. HEART: Regular rate and rhythm without murmurs ABDOMEN: Soft, nontender, normoactive bowel sounds. No guarding, no rebound. No masses appreciated. : Refused EXTREMITIES: Normal range of motion, no pitting or edema. No cyanosis. NEUROLOGICAL: Cranial nerves grossly intact. Normal speech, normal gait. Normal sensory and motor exams. PSYCH: Normal mood, normal affect. SKIN: Warm, Dry, normal turgor, no rashes or lesions noted. Course - Re-evaluation Re-evalutation: 01/16/17 02:[address] Lane (Fuel Technician online merchandiser) and she recommends beginning Provera 20 mg 3 times daily for 3 days and following up in her office in 1-2 days. Patient has no emergent need for blood transfusion at this time. She onlysoaked through 3 pads a day today and she is hemodynamically stable at this time. The risks of blood transfusion outweigh the benefits. Patient understands this. - Vital Signs Vital signs: Temp Pulse Resp BP Pulse Ox 98.5 F 93 16 145/80 H 98 01/16/17 00:52 01/16/17 00:52 01/16/17 00:52 01/16/17 00:52 01/16/17 00:52 - Laboratory Result Diagrams: 01/16/17 01:23 Laboratory results interpreted by me: 01/16/17 01:23 RBC 3.53 L Hgb 7.4 L Hct 23.8 L MCV 67 L MCH 20.8 L MCHC 30.9 L RDW 18.3 H Discharge - Discharge Clinical Impression: Menorrhagia Qualifiers: Menorrahagia type: with irregular cycle Qualified Code(s): N92.1 - Excessive and frequent menstruation with irregular cycle Condition: Stable Disposition: HOME, SELF-CARE Additional Instructions: VAGINAL BLEEDING: You are having an episode of abnormal bleeding. Causes of abnormal vaginal bleeding can include miscarriage or tubal , tumors such as cancer or benign fibroids, medication effects, or hormone imbalance. Testing can eliminate unsuspected , tumors, or infection as a cause. "Dysfunctional uterine bleeding" is due to hormone imbalance, and is especially common at times when the normal cycle is disturbed -- whether by recent , use of control pills or hormones, or impending menopause. If the bleeding is innocent, most commonly a short course of hormones is given to restore the uterus to normal. Sometimes, the normal menstrual cycle corrects itself naturally. Sometimes , brief hormone therapy, or even a D&C is required. Your physician will advise you. Treatment for anemia may be required if bleeding is severe. You should rest and avoid intercourse until the bleeding is controlled. Call the doctor or return for re-examination if you feel faint, have increasing pain, or have a major increase in the amount of bleeding. NORMAL EXAM AND WORKUP: At this time, except for vaginal bleeding, your examination and workup show no significant abnormality. No significant abnormal physical findings were noted. All laboratory, EKG, and imaging (x-ray, CT scans, ultrasound) studies that were ordered show no significant abnormality. Although your examination and all studies that were ordered showed no significant abnormal finding, there are no examinations and no studies that are 100% accurate. There is always the possibility that some abnormality could exist and not be detected with physical examination or within the limits and capabilities of laboratory and other studies. You should return or follow up as you were instructed on your visit today for further evaluation if your symptoms do not resolve. PROVERA: Provera (medroxyprogesterone) is usually used to stop excessive uterine bleeding or to regulate the periods. Provera is a form of progesterone, the hormone that stimulates the uterus lining to mature during the second half of your cycle. High doses of Provera can usually stop uterine bleeding. It's most useful for the abnormal bleeding that occurs when periods are irregular, such as around menopause. Provera usually isn't helpful for bleeding that occurs after Depo-Provera or Norplant. There is often another heavy "period" when you finish the Provera. Afterwards, the periods usually return to normal within a month or two. Contact your doctor if bleeding becomes more severe, or if you develop abdominal pain, lightheadedness, fever, or other new symptoms. FOLLOW-UP CARE: If you have been referred to a physician for follow-up care, call the physician s office for an appointment as you were instructed or within the next two days. If you experience worsening or a significant change in your symptoms (very heavy bleeding with large clots of blood, passage of tissue, more severe abdominal / pelvic pain or cramping, feeling faint or severe weakness, fever, etc.), notify the physician immediately or return to the Emergency Department at any time for re-evaluation. Prescriptions: Medroxyprogesterone Acetate [Provera] 20 mg PO TID 3 Days Referrals: ISAIAH LANE MD [ACTIVE STAFF] - Follow up as needed
[2017-01-16 01:39] LABS: ABSOLUTE EOSINOPHILS # (AUTO) 0.2 10^3/uL (0.0-0.6); ABSOLUTE LYMPHOCYTES (AUTO) 3.3 10^3/uL (0.5-4.7); ABSOLUTE MONOCYTES (AUTO) 0.5 10^3/uL (0.1-1.4); ABSOLUTE NEUT (AUTO) 5.7 10^3/uL (1.7-8.2); BASOPHILS % (AUTO) 0.3 % (0-2); EOSINOPHILS % (AUTO) 2.5 % (0-6); HEMATOCRIT 23.8 % (36.0-47.0); HGB HCT DIFFERENCE -1.6; MEAN CORPUSCULAR HEMOGLOBIN 20.8 pg (27.0-33.4); MEAN CORPUSCULAR HGB CONC 30.9 g/dL (32.0-36.0); MEAN CORPUSCULAR VOLUME 67 fl (80-97); MONOCYTES % (AUTO) 4.8 % (3-13); RED BLOOD COUNT 3.53 10^6/uL (3.72-5.28); RED CELL DISTRIBUTION WIDTH 18.3 % (11.5-14.0); SEGMENTED NEUTROPHILS % (AUTO) 58.4 % (42-78); WHITE BLOOD COUNT 9.7 10^3/uL (4.0-10.5)
[2017-01-16 01:47] LABS: HEMOGLOBIN 7.4 g/dL (12.0-15.5)
[2017-01-16 02:52] VITALS: BP 138/84
== END 2017-01-16 02:30 | disposition home or self-care (01) ==
LOC: ER 00:23
DX: N92.1 Excessive and frequent menstruation with irregular cycle (principal); Z88.6 Allergy status to analgesic agent
CPT/HCPCS: 36415; 84703; 85025; 86850; 86900; 86901; 99284

== ENCOUNTER 2017-02-05 00:18 | Emergency (ER) | payer MEDICAID ==
[2017-02-05 00:37] VITALS: BP 138/83
[2017-02-05 02:01] LABS: ABSOLUTE BASOPHILS # (AUTO) 0.1 10^3/uL (0.0-0.2); ABSOLUTE EOSINOPHILS # (AUTO) 0.2 10^3/uL (0.0-0.6); ABSOLUTE LYMPHOCYTES (AUTO) 2.8 10^3/uL (0.5-4.7); ABSOLUTE MONOCYTES (AUTO) 0.7 10^3/uL (0.1-1.4); ABSOLUTE NEUT (AUTO) 6.7 10^3/uL (1.7-8.2); BASOPHILS % (AUTO) 0.8 % (0-2); EOSINOPHILS % (AUTO) 2.1 % (0-6); HEMATOCRIT 24.1 % (36.0-47.0); HGB HCT DIFFERENCE -1.9; LYMPHOCYTES % (AUTO) 26.1 % (13-45); MEAN CORPUSCULAR HEMOGLOBIN 20.8 pg (27.0-33.4); MEAN CORPUSCULAR HGB CONC 30.6 g/dL (32.0-36.0); MEAN CORPUSCULAR VOLUME 68 fl (80-97); RED BLOOD COUNT 3.56 10^6/uL (3.72-5.28); RED CELL DISTRIBUTION WIDTH 19.9 % (11.5-14.0); WHITE BLOOD COUNT 10.5 10^3/uL (4.0-10.5)
[2017-02-05 02:02] LABS: HEMOGLOBIN 7.4 g/dL (12.0-15.5)
[2017-02-05] MEDS ORDERED: METFORMIN HCL 500 MG TABLET PO ONE (02:50)
[2017-02-05] MEDS ORDERED: MEDROXYPROGESTERONE ACET 10 MG TABLET PO ONE (02:50)
--- NOTE | 2017-02-05 02:55 | ER Document Report ---
ED General - General Chief Complaint: Vaginal Bleeding Stated Complaint: PELVIC PAIN Time Seen by Provider: 02/05/17 01:16 Notes: Patient is a 26-year-old female with past medical history of morbid obesity, chronic dysfunctional uterine bleeding who presents with 2 months of ongoing vaginal bleeding. States she has had bleeding through approximately 15 pads in total every day for the last several months. [facility] and had a blood transfusion at that time but states she has continued to bleed. She has tried oral control pills and Provera without resolution of her bleeding. She is not currently on control pills or Provera. She has seen the [employer] SALESPERSON's regarding this concern with the above recommended treatments without improvement. She does note associated fatigue, lightheadedness and exertional shortness of breath which she attributes to her anemia. She has not noted that anything seems to improve or worsen her symptoms. She denies any focal abdominal pain, vomiting, chest pain, focal weakness or numbness. TRAVEL OUTSIDE OF THE [place] IN LAST 30 DAYS: No - Related Data Allergies/Adverse Reactions: codeine Allergy (Verified 01/08/17 00:41) Past Medical History - General Information source: Patient - Social History Smoking Status: Never Smoker Frequency of alcohol use: None Drug Abuse: None Lives with: Spouse/Significant other Family History: Arthritis, CAD, COPD, CVA, DM, Hyperlipidemia, Hypertension. denies: Malignancy, Thyroid Disfunction - Past Medical History Cardiac Medical History: Reports: Hx Hypertension Pulmonary Medical History: Reports: Hx Asthma Renal/ Medical History: Reports: Hx Ovarian Cysts. Denies: Hx Peritoneal Dialysis Musculoskeltal Medical History: Reports Hx Arthritis Past Surgical History: Reports: Hx Gynecologic Surgery - D&C, Hx Orthopedic Surgery - lumbar disc - Immunizations Hx Diphtheria, Pertussis, Tetanus Vaccination: Yes Review of Systems - Review of Systems Notes: Constitutional: Negative for fever. HENT: Negative for sore throat. Eyes: Negative for visual changes. Cardiovascular: Negative for chest pain. Respiratory: Negative for shortness of breath. Gastrointestinal: Negative for abdominal pain, vomiting or diarrhea. Genitourinary: Negative for dysuria. Positive for vaginal bleeding Musculoskeletal: Negative for back pain. Skin: Negative for rash. Neurological: Negative for headaches, weakness or numbness. 10 point ROS negative except as marked above and in HPI. Physical Exam - Vital signs Vitals: Temp Pulse Resp BP Pulse Ox 98.1 F 103 H 16 138/83 H 100 02/05/17 00:28 02/05/17 00:28 02/05/17 00:28 02/05/17 00:28 02/05/17 00:28 Interpretation: Normal Notes: PHYSICAL EXAMINATION: GENERAL: Morbidly obese patient, no acute distress HEAD: Atraumatic, normocephalic. EYES: Pupils equal round and reactive to light, extraocular movements intact, sclera anicteric, conjunctiva are normal. ENT: nares patent, oropharynx clear without exudates. Moist mucous membranes. NECK: Normal range of motion, supple without lymphadenopathy LUNGS: Breath sounds clear to auscultation bilaterally and equal. No wheezes rales or rhonchi. HEART: Regular rate and rhythm without murmurs ABDOMEN: Soft, nontender, normoactive bowel sounds. No guarding, no rebound. No masses appreciated. EXTREMITIES: Normal range of motion, no pitting or edema. No cyanosis. NEUROLOGICAL: No focal neurological deficits. Moves all extremities spontaneously and on command. PSYCH: Normal mood, normal affect. SKIN: Warm, Dry, normal turgor, no rashes or lesions noted. Course - Re-evaluation Re-evalutation: 02/05/17 02:51 Presentation is most consistent with dysfunctional uterine bleeding and otherwise well-appearing patient. Hemoglobin is low at 7.4 although unchanged from prior although she has received transfusion since that time. Patient has been seen in the emergency department 8 times since the beginning of December for this concern. No tachycardia or hypotension. Examination is otherwise unremarkable. She denies bleeding through more than 2 pads an hour at any point in time. No indication for ultrasound at this time based on benign exam, vitals and laboratories. Minimal bleeding on exam. We have discussed with Dr. Maria the F[employer] C[employer] SALESPERSON on-call who recommends not transfusing the patient. He has also recommended starting Provera 20 mg daily for the next 10 days and has requested the patient come to the office for an endometrial biopsy early next week. I will also restart the patient on metformin for PCOS. At this time will discharge with return precautions and follow-up recommendations. Verbal discharge instructions given a the bedside and opportunity for questions given. Medication warnings reviewed. Patient is in agreement with this plan and has verbalized understanding of return precautions and the need for OB follow-up next week - Vital Signs Vital signs: Temp Pulse Resp BP Pulse Ox 98.1 F 103 H 16 138/83 H 100 02/05/17 00:28 02/05/17 00:28 02/05/17 00:28 02/05/17 00:28 02/05/17 00:28 - Laboratory Result Diagrams: 02/05/17 01:36 Laboratory results interpreted by me: 02/05/17 01:36 RBC 3.56 L Hgb 7.4 L Hct 24.1 L MCV 68 L MCH 20.8 L MCHC 30.6 L RDW 19.9 H Discharge - Discharge Clinical Impression: Dysfunctional uterine bleeding, Blood loss anemia Condition: Good Disposition: HOME, SELF-CARE Additional Instructions: You need to contact the [facility] clinic for follow-up early next week for an endometrial biopsy. Please take Provera 20 mg daily for the next 10 days. Your also being restarted on metformin to control your PCOS. Return for worsening bleeding, passing out, or any other symptoms that are worrisome to you. As we discussed today, please strongly consider losing weight. Your obesity will result in a shorter life and serious diagnoses including heart attacks, stroke, diabetes, high blood pressure, high cholesterol, kidney failure, and will also result in a much less enjoyable life due to these chronic conditions. Focus on gradual life style changes including removing sugared beverages and processed foods from your diet abd at least 30 minutes of moderate activity daily. Try to target 4-5lbs of weight loss per month. Prescriptions: Butalb/Acetaminophen/Caffeine [Fioricet (50-325-40 mg) Tablet] 1 tab PO Q4HP PRN #30 tab PRN Reason: Medroxyprogesterone Acet [Provera 10 Mg Tablet] 20 mg PO DAILY #20 tablet Metformin HCl 500 mg PO BID #60 tablet Referrals: KIKI BARTLETT DO [[facility]] - Follow up as needed
== END 2017-02-05 03:05 | disposition home or self-care (01) ==
LOC: ER 00:18
DX: E28.2 Polycystic ovarian syndrome (principal); N93.8 Other specified abnormal uterine and vaginal bleeding; D50.0 Iron deficiency anemia secondary to blood loss (chronic); R53.83 Other fatigue; R42 Dizziness and giddiness; I10 Essential (primary) hypertension; J45.909 Unspecified asthma, uncomplicated; E66.01 Morbid (severe) obesity due to excess calories; Z68.43 Body mass index [BMI] 50.0-59.9, adult; Z88.5 Allergy status to narcotic agent; Z87.42 Personal history of other diseases of the female genital tract
CPT/HCPCS: 99284; 36415; 85025; J3490 ×2

== ENCOUNTER 2017-02-22 22:58 | Emergency (ER) | payer MEDICAID ==
[2017-02-22 23:45] LABS: ABSOLUTE BASOPHILS # (AUTO) 0.1 10^3/uL (0.0-0.2); ABSOLUTE EOSINOPHILS # (AUTO) 0.3 10^3/uL (0.0-0.6); ABSOLUTE LYMPHOCYTES (AUTO) 3.3 10^3/uL (0.5-4.7); ABSOLUTE MONOCYTES (AUTO) 0.7 10^3/uL (0.1-1.4); ABSOLUTE NEUT (AUTO) 6.8 10^3/uL (1.7-8.2); BASOPHILS % (AUTO) 1.1 % (0-2); EOSINOPHILS % (AUTO) 2.3 % (0-6); HEMATOCRIT 28.7 % (36.0-47.0); HEMOGLOBIN 8.8 g/dL (12.0-15.5); HGB HCT DIFFERENCE -2.3; LYMPHOCYTES % (AUTO) 29.3 % (13-45); MEAN CORPUSCULAR HEMOGLOBIN 20.7 pg (27.0-33.4); MEAN CORPUSCULAR HGB CONC 30.6 g/dL (32.0-36.0); MEAN CORPUSCULAR VOLUME 68 fl (80-97); MONOCYTES % (AUTO) 5.8 % (3-13); RED BLOOD COUNT 4.23 10^6/uL (3.72-5.28); RED CELL DISTRIBUTION WIDTH 22.1 % (11.5-14.0); SEGMENTED NEUTROPHILS % (AUTO) 61.5 % (42-78); WHITE BLOOD COUNT 11.1 10^3/uL (4.0-10.5)
--- NOTE | 2017-02-22 23:47 | ER Document Report ---
ED General - General Chief Complaint: Abdominal Pain Stated Complaint: ABDOMINAL PAIN Time Seen by Provider: 02/22/17 23:31 Notes: Patient is a 26-year-old female presents with complaint of pain in bilateral flanks and back that radiates around to the lower and anterior abdomen. She does have history of recurrent dysfunctional uterine bleeding. She says that this pain for her is fairly new. She denies any fevers. No vomiting. No diarrhea. She has been treated for a long time for recurrent vaginal bleeding has had several transfusions. She says that her bleeding actually stopped for 2 weeks. She had a transfusion 1 week ago because hemoglobin was low when she saw her primary care physician. She says that she did start bleeding again last week. She denies it being as heavy as it has been in the past. She does have an appointment with gynecology tomorrow for potential uterine biopsy. TRAVEL OUTSIDE OF THE [place] IN LAST 30 DAYS: No - Related Data Allergies/Adverse Reactions: codeine Allergy (Verified 02/22/17 23:01) Past Medical History - Social History Smoking Status: Never Smoker Frequency of alcohol use: None Drug Abuse: None Family History: Arthritis, CAD, COPD, CVA, DM, Hyperlipidemia, Hypertension. denies: Malignancy, Thyroid Disfunction Patient has suicidal ideation: No Patient has homicidal ideation: No - Past Medical History Cardiac Medical History: Reports: Hx Hypertension Pulmonary Medical History: Reports: Hx Asthma Renal/ Medical History: Reports: Hx Ovarian Cysts. Denies: Hx Peritoneal Dialysis Musculoskeltal Medical History: Reports Hx Arthritis Past Surgical History: Reports: Hx Gynecologic Surgery - D&C, Hx Orthopedic Surgery - lumbar disc - Immunizations Hx Diphtheria, Pertussis, Tetanus Vaccination: Yes Review of Systems - Review of Systems Notes: My Normal Review Basic REVIEW OF SYSTEMS: CONSTITUTIONAL : Denies fever, chills, or sweats. Denies recent illness. EENT: Denies eye, ear, throat, or mouth pain or symptoms. Denies nasal or sinus congestion. CARDIOVASCULAR: Denies chest pain. RESPIRATORY: Denies cough, cold, or chest congestion. Denies shortness of breath, difficulty breathing, or wheezing. GASTROINTESTINAL: Lower abdominal and flank pain. MUSCULOSKELETAL: Lower back pain. SKIN: Denies rash or skin lesions. NEUROLOGICAL: Denies altered mental status or loss of consciousness. Denies headache. Denies weakness or paralysis or loss of use of either side. Denies problems with gait or speech. Denies sensory or motor loss. ALL OTHER SYSTEMS REVIEWED AND NEGATIVE. Physical Exam - Vital signs Vitals: Temp Pulse Resp BP Pulse Ox 99.3 F 110 H 18 145/94 H 100 02/22/17 23:02 02/22/17 23:02 02/22/17 23:02 02/22/17 23:02 02/22/17 23:02 - Notes Notes: General Appearance: Well nourished, alert, cooperative, no acute distress, no obvious discomfort. No apparent. Vitals: reviewed, See vital signs table. Head: no swelling or tenderness to the head Eyes: PERRL, EOMI, Conjuctiva clear Mouth: No decreasd moisture Lungs: No wheezing, No rales, No rhonci, No accessory muscle use, good air exchange bilaterally. Heart: Normal rate, Regular rythm, No murmur, no rub Abdomen: Normal BS, soft, No rigidity, lower abdominal tenderness palpation, No guarding, no rebound, no abdominal masses, no organomegaly Back: Pain to palpation of bilateral lower back flank. Extremities: strength 5/5 in all extremities, good pulses in all extremities, no swelling or tenderness in the extremities, no edema. Skin: warm, dry, appropriate color, no rash Neuro: speech clear, oriented x 3, normal affect, responds appropriately to questions. Course - Re-evaluation Re-evalutation: 02/23/17 02:19 Patient's CBC is normal. She does not require transfusion. Her pain seems very consistent with that of uterine cramping. I suspect this is the cause especially with her history of dysfunctional uterine bleeding. She has an appointment tomorrow with her family intervention specialist. I encouraged her to keep that appointment to go see her family intervention specialist for close reevaluation. She says she did have a previous history of kidney stones. Renal ultrasound showed no evidence of hydronephrosis. There is no evidence of infection on her urinalysis. At this time I feel patient is safe to be discharged home. She looks well clinically. Encouraged to return to ER immediately if she has worsening pain, vomiting, fevers, or feels unwell. Patient agrees with plan will be discharged home. Dictation of this chart was performed using voice recognition software; therefore, there may be some unintended grammatical errors. - Vital Signs Vital signs: Temp Pulse Resp BP Pulse Ox 98.6 F 88 18 124/72 97 02/23/17 01:53 02/23/17 01:53 02/23/17 01:53 02/23/17 01:53 02/23/17 01:53 - Laboratory Result Diagrams: 02/22/17 23:33 02/22/17 23:33 Laboratory results interpreted by me: 02/22/17 02/22/17 02/22/17 23:33 23:33 23:33 WBC 11.1 H Hgb 8.8 L Hct 28.7 L MCV 68 L MCH 20.7 L MCHC 30.6 L RDW 22.1 H Plt Count 468 H Carbon Dioxide 21 L BUN 5 L Urine Blood MODERATE H Discharge - Discharge Clinical Impression: Vaginal bleeding, Flank pain Condition: Good Disposition: HOME, SELF-CARE Additional Instructions: Please follow-up with your gynecology appointment today. Your hemoglobin today was 8.8. I suspect that your pain is related to the uterus itself. We did an ultrasound of your kidneys which showed no evidence of fluid back up in the kidneys. This suggests that that you do not have a kidney stone. Your urine showed no evidence of infection. Please return to the ER for worsening pain, lightheadedness or dizziness, fevers, or feel unwell. Referrals: KIM GARCIA PA-C [Primary Care Provider] - Follow up as needed
[2017-02-22 23:49] LABS: APPEARANCE,URINE CLEAR; BILIRUBIN,URINE NEGATIVE (NEGATIVE); GLUCOSE, URINE NEGATIVE (NEGATIVE); KETONES,URINE NEGATIVE (NEGATIVE); LEUKOCYTE ESTERASE,URINE NEGATIVE (NEGATIVE); NITRITE,URINE NEGATIVE (NEGATIVE); PROTEIN,URINE NEGATIVE (NEGATIVE); URINE SPECIFIC GRAVITY 1.008; UROBILINOGEN,URINE NEGATIVE mg/dL (<2.0)
[2017-02-23 00:03] LABS: ALANINE AMINOTRANSFERASE 25 U/L (9-52); ALBUMIN 3.9 g/dL (3.5-5.0); ALKALINE PHOSPHATASE 71 U/L (38-126); ANION GAP 12 (5-19); ASPARTATE AMINO TRANSFERASE 17 U/L (14-36); BILIRUBIN,DIRECT 0.3 mg/dL (0.0-0.4); BILIRUBIN,TOTAL 0.5 mg/dL (0.2-1.3); BLOOD UREA NITROGEN 5 mg/dL (7-20); CALCIUM 9.8 mg/dL (8.4-10.2); CARBON DIOXIDE 21 mmol/L (22-30); CHLORIDE 107 mmol/L (98-107); CREATININE RESULT 0.65 mg/dL (0.52-1.25); GLUCOSE 93 mg/dL (75-110); LIPASE 71.5 U/L (23-300); SODIUM 140.3 mmol/L (137-145); TOTAL PROTEIN 7.4 g/dL (6.3-8.2)
[2017-02-23] MEDS ORDERED: KETOROLAC TROMETHAMINE 60 MG/2 ML SDV IM ONE (01:03)
--- NOTE | 2017-02-23 01:03 | RADIOLOGY REPORT (SQ) ---
EXAM DESCRIPTION: U/S RETROPERITON (RENAL/AORTA) COMPLETED DATE/TIME: 02/23/2017 12:36 am REASON FOR STUDY: flank pain COMPARISON: CT, 05/26/2016. TECHNIQUE: Dynamic and static grayscale images acquired of the kidneys and bladder and recorded on P ACS. Additional selected color Doppler and spectral images recorded. LIMITATIONS: None. FINDINGS: RIGHT KIDNEY: Normal size. 13.0 cm. Normal echogenicity. No solid or suspicious masses. No hydronephrosis. No calcifications. LEFT KIDNEY: Normal size. 13.0 cm. Normal echogenicity. No solid or suspicious masses. No hydronep hrosis. No calcifications. BLADDER: No masses. Moderate nondistention. OTHER FINDINGS: No other significant finding. IMPRESSION: NORMAL RENAL AND BLADDER ULTRASOUND. TECHNICAL DOCUMENTATION: JOB ID: [id number] [employer]- All Rights Reserved
[2017-02-23] MEDS ORDERED: KETOROLAC TROMETHAMINE INJ/PF 30 MG/1 ML SDV ONE (01:08)
[2017-02-23 01:56] VITALS: BP 124/72
== END 2017-02-23 01:57 | disposition home or self-care (01) ==
LOC: ER 22:58
DX: N93.9 Abnormal uterine and vaginal bleeding, unspecified (principal); M54.5 Low back pain; R10.30 Lower abdominal pain, unspecified; Z88.5 Allergy status to narcotic agent; I10 Essential (primary) hypertension; J45.909 Unspecified asthma, uncomplicated; Z87.42 Personal history of other diseases of the female genital tract; Z87.442 Personal history of urinary calculi
CPT/HCPCS: 99284; 96374; 36415; 83690; 84703; 85025; 80053; 81001; 76770; J1885

== ENCOUNTER 2017-04-20 22:22 | Emergency (ER) | payer MEDICAID ==
[2017-04-21] MEDS ORDERED: ONDANSETRON 4 MG TAB.RAPDIS PO ONE (00:14)
[2017-04-21] MEDS ORDERED: HYDROCODONE/ACETAMINOPHEN 5-325 MG TABLET PO ONE (00:14)
[2017-04-21] MEDS ORDERED: IPRATROPIUM/ALBUTEROL 0.5-2.5 MG/3 ML AMPUL NEB ONE (00:15)
--- NOTE | 2017-04-21 00:17 | ER Document Report ---
HPI - HPI Patient complains to provider of: sore throat, cough, nausea Onset: Other - 2 days Onset/Duration: Persistent Quality of pain: Achy Pain Level: 4 Context: Patient presents complaining of sore throat, cough fever, headache with nausea and vomiting. Patient does report recent sick contact exposure at home. Patient states she has vomited about 4 times today. Associated Symptoms: Chills, Nonproductive cough, Earache, Fever, Headache, Vomiting, Sore throat Exacerbated by: Denies Relieved by: Denies Similar symptoms previously: Yes Recently seen / treated by doctor: No - ROS ROS below otherwise negative: Yes Systems Reviewed and Negative: Yes All other systems reviewed and negative - CONSTITUTIONAL Constitutional: REPORTS: Fever, Chills - EENT EENT: REPORTS: Sore Throat, Ear Pain, Congestion - NEURO Neurology: REPORTS: Headache. DENIES: Weakness, Vision blurred - CARDIOVASCULAR Cardiovascular: DENIES: Chest pain - RESPIRATORY Respiratory: REPORTS: Coughing - GASTROINTESTINAL Gastrointestinal: REPORTS: Nausea, Patient vomiting. DENIES: Abdominal Pain, Diarrhea - URINARY Urinary: DENIES: Dysuria, Urgency, Frequency - REPRODUCTIVE Reproductive: DENIES: : - MUSCULOSKELETAL Musculoskeletal: DENIES: Extremity pain, Back Pain - DERM Skin Color: Normal Skin Problems: None Past Medical History - General Information source: Patient - Social History Smoking Status: Current Every Day Smoker Smoking Education Provided: Yes - For at least 3 minutes Frequency of alcohol use: None Drug Abuse: None Occupation: none Lives with: Family Family History: Arthritis, CAD, COPD, CVA, DM, Hyperlipidemia, Hypertension. denies: Malignancy, Thyroid Disfunction - Past Medical History Cardiac Medical History: Reports: Hx Hypertension, Other - Anemia Pulmonary Medical History: Reports: Hx Asthma Renal/ Medical History: Reports: Hx Ovarian Cysts. Denies: Hx Peritoneal Dialysis GI Medical History: Reports: Hx Gastroesophageal Reflux Disease Musculoskeltal Medical History: Reports Hx Arthritis Past Surgical History: Reports: Hx Gynecologic Surgery - D&C, Hx Orthopedic Surgery - lumbar disc - Immunizations Hx Diphtheria, Pertussis, Tetanus Vaccination: Yes Vertical Provider Document - CONSTITUTIONAL Agree With Documented VS: Yes Exam Limitations: No Limitations General Appearance: WD/WN, No Apparent Distress, Obese - Morbidly - INFECTION CONTROL TRAVEL OUTSIDE OF THE [place] IN LAST 30 DAYS: No - HEENT HEENT: Atraumatic, Normocephalic, Pharyngeal Tenderness, Pharyngeal Erythema. negative: Pharyngeal Exudate, Tympanic Membrane Red, Tympanic Membrane Bulging - NECK Neck: Normal Inspection, Supple. negative: Lymphadenopathy-Left, Lymphadenopathy-Right Notes: No meningismus - RESPIRATORY Respiratory: No Respiratory Distress, Chest Non-Tender, Other - Occasional dry cough O2 Sat by Pulse Oximetry: 99 - CARDIOVASCULAR Cardiovascular: Regular Rate, Regular Rhythm, No Murmur - BACK Back: Normal Inspection - MUSCULOSKELETAL/EXTREMETIES Musculoskeletal/Extremeties: JAZMIN MURDOCK - NEURO Level of Consciousness: Awake, Alert, Appropriate Motor/Sensory: No Motor Deficit - DERM Integumentary: Warm, Dry, No Rash Course - Re-evaluation Re-evalutation: 04/21/17 01:14 The patient has been informed that they may have pre-hypertension or hypertension based on a blood pressure reading in the emergency department. I recommend that patient call the primary care provider listed on their discharge instructions or a physician of their choice by this week to arrange follow-up for further evaluation of possible pre-hypertension or hypertension. Patient's respirations unlabored. Patient without any wheezing. No concern for asthma exacerbation at this time. Patient without any nausea or vomiting during ER stay. Patient able to tolerate oral fluids. Discussed results of patient's chest x-ray as well as rapid strep test. Patient nontoxic in appearance. Discussed worsening signs or symptoms that patient should return medially for. Patient verbalized understanding and agrees with plan of care. - Vital Signs Vital signs: Temp Pulse Resp BP Pulse Ox 98.5 F 94 18 148/99 H 99 04/20/17 22:34 04/20/17 22:34 04/20/17 22:34 04/20/17 22:34 04/20/17 22:34 - Laboratory Laboratory results interpreted by me: 04/21/17 01:14 Labs- Entire Visit 04/21/17 00:35 Group A Strep Rapid NEGATIVE - Diagnostic Test Radiology reviewed: Reports reviewed Discharge - Discharge Clinical Impression: Elevated blood pressure reading, Sore throat Nausea & vomiting Qualifiers: Vomiting type: unspecified Vomiting Intractability: non-intractable Qualified Code(s): R11.2 - Nausea with vomiting, unspecified Upper respiratory infection Qualifiers: URI type: unspecified URI Qualified Code(s): J06.9 - Acute upper respiratory infection, unspecified Headache Qualifiers: Headache type: unspecified Headache chronicity pattern: unspecified pattern Intractability: not intractable Qualified Code(s): R51 - Headache Condition: Stable Disposition: HOME, SELF-CARE Instructions: Acetaminophen, Antinausea Medication ([facility]), Upper Respiratory Illness ([facility]), Vomiting ([facility]), Sore Throat ([facility]), Headache ([facility]) Additional Instructions: Return immediately for any new or worsening symptoms Followup with your primary care provider, call tomorrow to make a followup appointment stay well hydrated Culture is pending, we will call if you need any different treatment Prescriptions: Benzonatate [Tessalon Perle 100 mg Capsule] 100 mg PO Q8HP PRN #20 cap PRN Reason: Butalb/Acetaminophen/Caffeine [Fioricet (50-325-40 mg) Tablet] 1 - 2 tab PO Q4H #12 each Promethazine HCl [Phenergan 25 mg Tablet] 25 mg PO Q6H PRN #12 tablet PRN Reason:
--- NOTE | 2017-04-21 00:50 | RADIOLOGY REPORT (SQ) ---
EXAM DESCRIPTION: CHEST PA/LAT CLINICAL HISTORY: fever, cough COMPARISON: None. FINDINGS: Frontal and lateral views of the chest. The cardiomediastinal silhouette has normal size and contour. No consolidation, pneumothorax, or pleural effusion. No displaced rib fractures identified. Upper abdominal soft tissues are unremarkable. IMPRESSION: 1. No acute pulmonary process identified.
[2017-04-21 02:33] VITALS: BP 146/85
== END 2017-04-21 03:07 | disposition home or self-care (01) ==
LOC: ER 22:22
DX: J06.9 Acute upper respiratory infection, unspecified (principal); J02.9 Acute pharyngitis, unspecified; R05 Cough; R03.0 Elevated blood-pressure reading, without diagnosis of hypertension; R51 Headache; R50.9 Fever, unspecified; R11.2 Nausea with vomiting, unspecified; F17.210 Nicotine dependence, cigarettes, uncomplicated
CPT/HCPCS: 94640; 99283; 87070; 87880; 87077; 71020; S0119; J7620

== ENCOUNTER 2017-04-23 02:29 | Emergency (ER) | payer MEDICAID ==
[2017-04-23 04:07] LABS: APPEARANCE,URINE CLEAR; BILIRUBIN,URINE NEGATIVE (NEGATIVE); GLUCOSE, URINE NEGATIVE (NEGATIVE); KETONES,URINE NEGATIVE (NEGATIVE); LEUKOCYTE ESTERASE,URINE TRACE (NEGATIVE); NITRITE,URINE NEGATIVE (NEGATIVE); PROTEIN,URINE NEGATIVE (NEGATIVE); URINE SPECIFIC GRAVITY 1.012; UROBILINOGEN,URINE NEGATIVE mg/dL (<2.0)
[2017-04-23] MEDS ORDERED: KETOROLAC TROMETHAMINE INJ/PF 30 MG/1 ML SDV IV ONE (04:22)
[2017-04-23] MEDS ORDERED: NORMAL SALINE 1000 ML 1,000 ML IV ONE (04:22)
[2017-04-23] MEDS ORDERED: DEXAMETHASONE SOD PHOS INJ 10 MG/1 ML VIAL IV ONE (04:22)
--- NOTE | 2017-04-23 04:29 | ER Document Report ---
ED General - General Chief Complaint: Flu Symptoms Stated Complaint: VOMITING Time Seen by Provider: 04/23/17 04:12 Notes: Patient is a 26-year-old female comes emergency department for chief complaint of fever, congestion, sore throat, cough, and vomiting episodes for the past 3 days. She was evaluated 3 days ago, had a negative strep and chest x-ray. She states she was exposed to a child with a viral illness. She has been vaccinated for the flu. She states symptoms started out with a bad sore throat , her worst symptom is her throat. She denies dizziness, passing out, difficulty breathing, abdominal pain. Past medical history of PCO S, GERD, dysfunctional uterine bleeding, obesity. She smokes. TRAVEL OUTSIDE OF THE [place] IN LAST 30 DAYS: No - Related Data Allergies/Adverse Reactions: codeine Allergy (Verified 02/22/17 23:01) Past Medical History - General Information source: Patient - Social History Smoking Status: Current Every Day Smoker Chew tobacco use (# tins/day): No Smoking Education Provided: Yes - <3 min Frequency of alcohol use: None Drug Abuse: None Lives with: Family Family History: Arthritis, CAD, COPD, CVA, DM, Hyperlipidemia, Hypertension. denies: Malignancy, Thyroid Disfunction Patient has suicidal ideation: No Patient has homicidal ideation: No - Past Medical History Cardiac Medical History: Reports: Hx Hypertension Pulmonary Medical History: Reports: Hx Asthma Renal/ Medical History: Reports: Hx Ovarian Cysts. Denies: Hx Peritoneal Dialysis GI Medical History: Reports: Hx Gastroesophageal Reflux Disease Musculoskeltal Medical History: Reports Hx Arthritis Past Surgical History: Reports: Hx Gynecologic Surgery - D&C, Hx Orthopedic Surgery - lumbar disc - Immunizations Hx Diphtheria, Pertussis, Tetanus Vaccination: Yes Review of Systems - Review of Systems Constitutional: See HPI EENT: Eye pain Cardiovascular: No symptoms reported Respiratory: See HPI Gastrointestinal: See HPI Genitourinary: No symptoms reported Female Genitourinary: No symptoms reported Musculoskeletal: No symptoms reported Skin: No symptoms reported Hematologic/Lymphatic: No symptoms reported Neurological/Psychological: No symptoms reported Physical Exam - Vital signs Vitals: Temp Pulse Resp BP Pulse Ox 100.0 F 101 H 18 146/78 H 99 04/23/17 02:39 04/23/17 02:39 04/23/17 02:39 04/23/17 02:39 04/23/17 02:39 Interpretation: Normal - General General appearance: Appears well, Alert In distress: None - HEENT Head: Normocephalic, Atraumatic Eyes: Normal Conjunctiva: Normal Extraocular movements intact: Yes Eyelashes: Normal Pupils: PERRL Sinus: Maxillary - Bilateral maxillary sinus tenderness, mild nasal congestion Nasal: Normal Mouth/Lips: Normal Mucous membranes: Normal Pharynx: Tonsillar hypertrophy - Mild erythema with tonsillar hypertrophy. No: Exudate, Peritonsillar abscess, Uvular edema, Potential airway comprom. Neck: Normal. No: Anterior cervical chain, Posterior cervical chain - Respiratory Respiratory status: No respiratory distress. No: Labored, Tachypnea Chest status: Nontender Breath sounds: Normal. No: Decreased air movement, Wheezing Chest palpation: Normal - Cardiovascular Rhythm: Regular, Tachycardia - Borderline Heart sounds: Normal auscultation, S1 appreciated, S2 appreciated Murmur: No - Abdominal Inspection: Normal Distension: No distension Bowel sounds: Normal Tenderness: Nontender. No: Tender, Guarding Organomegaly: No organomegaly - Back Back: Normal, Nontender - Extremities General upper extremity: Normal inspection, Nontender, Normal color, Normal ROM , Normal temperature General lower extremity: Normal inspection, Nontender, Normal color, Normal ROM , Normal temperature, Normal weight bearing. No: Ty's sign - Neurological Neuro grossly intact: Yes Cognition: Normal Orientation: AAOx4 Rahul Coma Scale Eye Opening: Spontaneous Rahul Coma Scale Verbal: Oriented [place] Coma Scale Motor: Obeys Commands [place] Coma Scale Total: 15 Speech: Normal Motor strength normal: LUE, RUE, LLE, RLE Sensory: Normal - Psychological Associated symptoms: Normal affect, Normal mood - Skin Skin Temperature: Warm Skin Moisture: Dry Skin Color: Normal Course - Re-evaluation Re-evalutation: Patient with tonsillitis, tenderness over her sinuses, mild tachycardia, borderline fever. Appears to initially have been viral and now appears to be sinus infection with postnasal drainage. No adenopathy. Clear lungs. Soft abdomen. Well-appearing patient. CBC nonspecific, hemoglobin has improved from prior. Chemistry, urine unremarkable. Lynn negative. Patient has been treated with Toradol, dexamethasone, IV fluids. Will treat for sinus infection with amoxicillin. Discussed follow-up recommendations, return precautions, patient states understanding and agreement. - Vital Signs Vital signs: Temp Pulse Resp BP Pulse Ox 98.0 F 81 16 132/76 H 97 04/23/17 07:28 04/23/17 07:28 04/23/17 07:28 04/23/17 07:28 04/23/17 07:28 - Laboratory Result Diagrams: 04/23/17 05:20 04/23/17 05:20 Laboratory results interpreted by me: 04/23/17 04/23/17 04/23/17 03:10 05:20 05:20 WBC 12.9 H Hgb 9.5 L Hct 31.5 L MCV 65 L MCH 19.7 L MCHC 30.2 L RDW 19.9 H Direct Bilirubin 0.5 H AST 43 H Ur Leukocyte Esterase TRACE H Discharge - Discharge Clinical Impression: Sinusitis Qualifiers: Sinusitis location: unspecified location Chronicity: acute Recurrence: non- recurrent Qualified Code(s): J01.90 - Acute sinusitis, unspecified Pharyngitis Qualifiers: Pharyngitis/tonsillitis etiology: unspecified etiology Qualified Code(s): J02.9 - Acute pharyngitis, unspecified Fever Qualifiers: Fever type: unspecified Qualified Code(s): R50.9 - Fever, unspecified Condition: Stable Disposition: HOME, SELF-CARE Additional Instructions: Your examination is consistent with a sinus infection, this probably originated as a viral syndrome. You have been treated with dexamethasone, take Tylenol or ibuprofen to keep your fever down, take amoxicillin antibiotics as prescribed, drink plenty of fluids and rest. [id number] remedies such as decongestants and nasal spray can help as well. Follow-up with primary care. Return to the emergency department for any concerning or worsening symptoms including spiking fevers, difficulty breathing, or any other concerning symptoms. Prescriptions: Amoxicillin Trihydrate [Amoxil 875 mg Tablet] 1 tab PO BID #20 tablet Forms: Parent Work Note Referrals: JIM GU NP [Primary Care Provider] - Follow up as needed
[2017-04-23 05:50] LABS: ABSOLUTE EOSINOPHILS # (AUTO) 0.5 10^3/uL (0.0-0.6); ABSOLUTE LYMPHOCYTES (AUTO) 3.5 10^3/uL (0.5-4.7); ABSOLUTE MONOCYTES (AUTO) 0.7 10^3/uL (0.1-1.4); ABSOLUTE NEUT (AUTO) 8.1 10^3/uL (1.7-8.2); BASOPHILS % (AUTO) 0.3 % (0-2); EOSINOPHILS % (AUTO) 4.1 % (0-6); HEMATOCRIT 31.5 % (36.0-47.0); HEMOGLOBIN 9.5 g/dL (12.0-15.5); LYMPHOCYTES % (AUTO) 27.5 % (13-45); MEAN CORPUSCULAR HEMOGLOBIN 19.7 pg (27.0-33.4); MEAN CORPUSCULAR HGB CONC 30.2 g/dL (32.0-36.0); MEAN CORPUSCULAR VOLUME 65 fl (80-97); MONOCYTES % (AUTO) 5.2 % (3-13); RED BLOOD COUNT 4.84 10^6/uL (3.72-5.28); RED CELL DISTRIBUTION WIDTH 19.9 % (11.5-14.0); SEGMENTED NEUTROPHILS % (AUTO) 62.9 % (42-78); WHITE BLOOD COUNT 12.9 10^3/uL (4.0-10.5)
[2017-04-23 06:27] LABS: ALANINE AMINOTRANSFERASE 18 U/L (9-52); ALBUMIN 4.1 g/dL (3.5-5.0); ALKALINE PHOSPHATASE 89 U/L (38-126); ANION GAP 13 (5-19); ASPARTATE AMINO TRANSFERASE 43 U/L (14-36); BILIRUBIN,DIRECT 0.5 mg/dL (0.0-0.4); BILIRUBIN,TOTAL 0.7 mg/dL (0.2-1.3); BLOOD UREA NITROGEN 11 mg/dL (7-20); CALCIUM 9.4 mg/dL (8.4-10.2); CARBON DIOXIDE 22 mmol/L (22-30); CHLORIDE 106 mmol/L (98-107); CREATININE RESULT 0.62 mg/dL (0.52-1.25); GLUCOSE 101 mg/dL (75-110); POTASSIUM 4.5 mmol/L (3.6-5.0); SODIUM 140.8 mmol/L (137-145); TOTAL PROTEIN 7.9 g/dL (6.3-8.2)
[2017-04-23] MEDS ORDERED: AMOXICILLIN TRIHYDRATE 500 MG CAPSULE PO ONE (06:57)
[2017-04-23 07:29] VITALS: BP 132/76
== END 2017-04-23 07:28 | disposition home or self-care (01) ==
LOC: ER 02:29
DX: J03.90 Acute tonsillitis, unspecified (principal); J01.90 Acute sinusitis, unspecified; R11.10 Vomiting, unspecified; R50.9 Fever, unspecified; R05 Cough; R09.81 Nasal congestion; H57.10 Ocular pain, unspecified eye; I10 Essential (primary) hypertension; J45.909 Unspecified asthma, uncomplicated; F17.200 Nicotine dependence, unspecified, uncomplicated; Z71.6 Tobacco abuse counseling; Z88.5 Allergy status to narcotic agent
CPT/HCPCS: 99283; 96361; 96374; 96375; 36415; 85025; 81025; 86308; 80053; 81001; J1885; J7030; J1100

== ENCOUNTER → 2017-05-31 | Outpatient (CLI) | payer MEDICAID ==
--- NOTE | 2017-06-05 14:19 | RADIOLOGY REPORT (SQ) ---
EXAM DESCRIPTION: MRI LUMBAR SPINE WITHOUT COMPLETED DATE/TIME: 05/31/2017 5:08 pm REASON FOR STUDY: M51.26 OTHER INTERVERTEBRAL DISC DISPLACEMENT, LUMBAR REGION M51.26 OTHER INTERVE RTEBRAL DISC DISPLACEMENT, LUMBAR REGION COMPARISON: None. TECHNIQUE: Sagittal and Axial imaging includes T1, T2, STIR and gradient echo sequences. Coronal T2/ HASTE imaging. LIMITATIONS: Motion. Body habitus. FINDINGS: VISUALIZED UPPER ABDOMEN: Limited evaluation. No acute or suspicious findings suggested. SEGMENTATION: No transitional anatomy. The lowest well-developed disc space is labeled L5-S1. ALIGNMENT: Mild convex left scoliosis. VERTEBRAE: Intact. BONE MARROW: Normal. No marrow replacement or reactive changes. DISC SIGNAL: Desiccation multiple levels. POSTERIOR ELEMENTS: Intact. HARDWARE: None in the spine. CORD AND CONUS: Normal in size and signal intensity. Conus at the appropriate level. SOFT TISSUES: No aortic aneurysm seen. No bulky retroperitoneal adenopathy or mass. No paraspinal mas s or fluid. L1-L2: No significant spinal stenosis or exit foraminal stenosis. L2-L3: Mild spinal stenosis due to disc bulge. L3-L4: Mild -moderate spinal stenosis due to disc bulge. L4-L5: Left paracentral and downward disc protrusion contacts the transiting left L5 nerve root in th e spinal canal. L5-S1: Central disc protrusion contacts both transiting S1 nerve roots in the canal. LOWER THORACIC: Incompletely imaged. No stenosis seen. SACRUM: Visualized upper sacrum intact. OTHER: No other significant findings. IMPRESSION: Disc herniations at L4- 5 and L5-S1. TECHNICAL DOCUMENTATION: JOB ID: [id number] [employer]- All Rights Reserved
== END ==
LOC: RAD 16:12
PROVIDERS: ATTEND Nurse Practitioner Family
DX: M51.26 Other intervertebral disc displacement, lumbar region (principal)
CPT/HCPCS: 72148

== ENCOUNTER 2017-06-15 18:57 | Emergency (ER) | payer MEDICAID ==
--- NOTE | 2017-06-15 19:18 | ER Document Report ---
ED Medical Screen (RME) - General Chief Complaint: Post Surgical Pain Stated Complaint: DIFFICULTY BREATHING Time Seen by Provider: 06/15/17 19:11 Notes: 26-year-old female here with complaints of shortness of breath and chest pain radiating through to the back that is worse with breathing but not exertion. She states that the chest pain/back pain started earlier this morning. She is status post tonsillectomy recently. She denies any history of PE/DVT. Denies any history of extremity pain or swelling. EXAM Clear to auscultation bilaterally TRAVEL OUTSIDE OF THE [place] IN LAST 30 DAYS: No - Related Data Allergies/Adverse Reactions: codeine Allergy (Verified 02/22/17 23:01) Past Medical History - Social History Chew tobacco use (# tins/day): No Frequency of alcohol use: Occasional Drug Abuse: None - Past Medical History Cardiac Medical History: Reports: Hx Hypertension Pulmonary Medical History: Reports: Hx Asthma Renal/ Medical History: Reports: Hx Ovarian Cysts. Denies: Hx Peritoneal Dialysis GI Medical History: Reports: Hx Gastroesophageal Reflux Disease Musculoskeltal Medical History: Reports Hx Arthritis Past Surgical History: Reports: Hx Gynecologic Surgery - D&C, Hx Orthopedic Surgery - lumbar disc - Immunizations Hx Diphtheria, Pertussis, Tetanus Vaccination: Yes Physical Exam - Vital signs Vitals: Temp Pulse Resp BP Pulse Ox 98.7 F 70 22 H 148/95 H 99 06/15/17 19:07 06/15/17 19:07 06/15/17 19:07 06/15/17 19:07 06/15/17 19:07 Course - Vital Signs Vital signs: Temp Pulse Resp BP Pulse Ox 98.7 F 70 22 H 148/95 H 99 06/15/17 19:07 06/15/17 19:07 06/15/17 19:07 06/15/17 19:07 06/15/17 19:07
[2017-06-15] MEDS ORDERED: DEXAMETHASONE SOD PHOS INJ 10 MG/1 ML VIAL IV ONE (19:59)
[2017-06-15] MEDS ORDERED: HYDROMORPHONE HCL INJ/PF 2 MG/ML AMPULE IV ONE ×2 (20:00→22:51)
[2017-06-15] MEDS ORDERED: NORMAL SALINE 1000 ML 1,000 ML IV ONE ×2 (20:01→22:51)
--- NOTE | 2017-06-15 20:17 | ER Document Report ---
ED General - General Chief Complaint: Post Surgical Pain Stated Complaint: DIFFICULTY BREATHING Time Seen by Provider: 06/15/17 19:11 Mode of Arrival: Ambulatory Information source: Patient TRAVEL OUTSIDE OF THE [place] IN LAST 30 DAYS: No - HPI Patient complains to provider of: She states she got her tonsils out yesterday now she has an extremely sore Onset: Yesterday Onset/Duration: Persistent Severity: Severe Pain Level: 5 Context: She states the narcotic pain medication she was given a prescription is not helping her Associated symptoms: Other - She also complaining of pain in the center of her chest as well as the center of her back which is worse with deep inspiration Exacerbated by: Other - Following Similar symptoms previously: No Recently seen / treated by doctor: No - Related Data Allergies/Adverse Reactions: codeine Allergy (Verified 02/22/17 23:01) Home Medications: Current Home Medications Albuterol Sulfate [Albuterol Sulfate 2.5mg/3 mL] 2.5 mg IH PRN PRN 06/15/17 [ History] Hydrocodone Bit/Acetaminophen [Hydrocodon-Acetaminophen 5-325] 1 each PO PRN PRN 06/15/17 [History] Ibuprofen 800 mg PO PRN PRN 06/15/17 [History] Metformin HCl 500 mg PO DAILY 06/15/17 [History] Omeprazole 20 mg PO DAILY 06/15/17 [History] Past Medical History - General Information source: Patient, Relative - Social History Smoking Status: Current Every Day Smoker Chew tobacco use (# tins/day): No Frequency of alcohol use: Occasional Drug Abuse: None Family History: Arthritis, CAD, COPD, CVA, DM, Hyperlipidemia, Hypertension. denies: Malignancy, Thyroid Disfunction Patient has suicidal ideation: No Patient has homicidal ideation: No - Past Medical History Cardiac Medical History: Reports: Hx Hypertension Pulmonary Medical History: Reports: Hx Asthma Renal/ Medical History: Reports: Hx Ovarian Cysts. Denies: Hx Peritoneal Dialysis GI Medical History: Reports: Hx Gastroesophageal Reflux Disease Musculoskeltal Medical History: Reports Hx Arthritis Past Surgical History: Reports: Hx Gynecologic Surgery - D&C, Hx Orthopedic Surgery - lumbar disc - Immunizations Hx Diphtheria, Pertussis, Tetanus Vaccination: Yes Review of Systems - Review of Systems Constitutional: No symptoms reported EENT: Throat pain, Difficulty swallowing Cardiovascular: No symptoms reported Respiratory: No symptoms reported Gastrointestinal: No symptoms reported Genitourinary: No symptoms reported Female Genitourinary: No symptoms reported Musculoskeletal: No symptoms reported Skin: No symptoms reported Hematologic/Lymphatic: No symptoms reported Neurological/Psychological: No symptoms reported Physical Exam - Vital signs Vitals: Temp Pulse Resp BP Pulse Ox 98.7 F 70 22 H 148/95 H 99 06/15/17 19:07 06/15/17 19:07 06/15/17 19:07 06/15/17 19:07 06/15/17 19:07 - Notes Notes: PHYSICAL EXAMINATION: GENERAL: Drew obese female sitting up on the gurney in mild distress secondary to throat pain. No signs of difficulty breathing HEAD: Atraumatic, normocephalic. EYES: Pupils equal round and reactive to light, extraocular movements intact, conjunctiva are normal. ENT: Nares patent, stop surgical changes to posterior pharynx. No bleeding. No signs of infection.. Moist mucous membranes. Uvula midline. NECK: Normal range of motion, supple without lymphadenopathy. LUNGS: Breath sounds clear to auscultation bilaterally and equal. No wheezes rales or rhonchi. HEART: Regular rate and rhythm without murmurs ABDOMEN: Soft, nontender, nondistended abdomen. No guarding, no rebound. No masses appreciated. Female : deferred Musculoskeletal: Normal range of motion, no pitting or edema. No cyanosis. NEUROLOGICAL: Cranial nerves grossly intact. Speech is muffled secondary to throat pain. Normal sensory, motor exams. PSYCH: Normal mood, normal affect. SKIN: Warm, Dry, normal turgor, no rashes or lesions noted. Course - Re-evaluation Re-evalutation: 06/15/17 22:52 Patient laying in bed much more comfortable on her phone. She states that the pain medication as well as IV fluids is helped. Patient has also received her Decadron. We will reduce her one time with normal saline solution, Dilaudid, and she is willing to try ice chips. Nurse aware. - Vital Signs Vital signs: Temp Pulse Resp BP Pulse Ox 98.7 F 70 22 H 148/95 H 99 06/15/17 19:07 06/15/17 19:07 06/15/17 19:07 06/15/17 19:07 06/15/17 19:07 - Laboratory Result Diagrams: 06/15/17 19:45 06/15/17 19:45 Laboratory results interpreted by me: 06/15/17 19:45 WBC 16.2 H Hgb 9.5 L Hct 31.9 L MCV 65 L MCH 19.3 L MCHC 29.8 L RDW 19.0 H Plt Count 454 H Absolute Neutrophils 11.0 H Discharge - Discharge Clinical Impression: Post-op pain, Anemia, Obesity Condition: Stable Disposition: HOME, SELF-CARE Additional Instructions: Continue outpatient medication as previously prescribed. Please follow-up with the surgeon as previously scheduled. Return to the emergency department if you have any concerns.
[2017-06-15 20:26] LABS: ABSOLUTE LYMPHOCYTES (AUTO) 4.3 10^3/uL (0.5-4.7); ABSOLUTE MONOCYTES (AUTO) 0.9 10^3/uL (0.1-1.4); BASOPHILS % (AUTO) 0.2 % (0-2); EOSINOPHILS % (AUTO) 0.1 % (0-6); HEMATOCRIT 31.9 % (36.0-47.0); HEMOGLOBIN 9.5 g/dL (12.0-15.5); LYMPHOCYTES % (AUTO) 26.5 % (13-45); MEAN CORPUSCULAR HEMOGLOBIN 19.3 pg (27.0-33.4); MEAN CORPUSCULAR HGB CONC 29.8 g/dL (32.0-36.0); MEAN CORPUSCULAR VOLUME 65 fl (80-97); MONOCYTES % (AUTO) 5.5 % (3-13); PLATELET COUNT 454 10^3/uL (150-450); RED BLOOD COUNT 4.92 10^6/uL (3.72-5.28); SEGMENTED NEUTROPHILS % (AUTO) 67.7 % (42-78); TOTAL CELLS COUNTED % (AUTO) 100 %; WHITE BLOOD COUNT 16.2 10^3/uL (4.0-10.5)
[2017-06-15 20:42] LABS: ANISOCYTOSIS 2+; HYPOCHROMASIA 1+; OVALOCYTES SLIGHT; PLATELET COMMENT INCREASED; POIKILOCYTOSIS 1+; TOXIC GRANULATION SLIGHT
[2017-06-15 20:56] LABS: ANION GAP 11 (5-19); BLOOD UREA NITROGEN 11 mg/dL (7-20); CALCIUM 9.8 mg/dL (8.4-10.2); CARBON DIOXIDE 27 mmol/L (22-30); CHLORIDE 104 mmol/L (98-107); GLUCOSE 76 mg/dL (75-110); POTASSIUM 4.4 mmol/L (3.6-5.0); SODIUM 141.7 mmol/L (137-145)
[2017-06-15] MEDS ORDERED: ONDANSETRON HCL INJ/PF 4 MG/2 ML SDV IV ONE (21:41)
[2017-06-16 01:01] VITALS: BP 117/65
--- NOTE | 2017-06-17 14:32 | ER Document Report ---
Doctor's Note Notes: 06/17/17 14:30 I called the patient today does follow-up and see how she is doing. I did talk to her significant other. He states that she was right next to him however she could not talk because her throat was still bothering her. Did state that she was taking Powerade throughout the day as well as some mashed potatoes and she is feeling better with each passing day. He states he was dosing her pain medication as we spoke. I did encourage him to tell her that each day the patient should be improving and to again encourage fluids. If there is any concerns patient can return to the emergency department.
== END 2017-06-16 00:48 | disposition home or self-care (01) ==
LOC: ER 18:57
DX: G89.18 Other acute postprocedural pain (principal); D64.9 Anemia, unspecified; E66.9 Obesity, unspecified; R06.02 Shortness of breath; Z79.899 Other long term (current) drug therapy; F17.200 Nicotine dependence, unspecified, uncomplicated
CPT/HCPCS: 96376; 99283; 96361; 96374; 96375; 36415; 85025; 80048; 85379; J1170; J2405; J7030; J1100

== ENCOUNTER 2017-07-02 04:40 | Emergency (ER) | payer MEDICAID ==
[2017-07-02] MEDS ORDERED: ACETAMINOPHEN 325 MG TABLET PO ONE (05:12)
--- NOTE | 2017-07-02 05:16 | ER Document Report ---
HPI - HPI Patient complains to provider of: Fall Onset: Yesterday Onset/Duration: Sudden Quality of pain: Achy Pain Level: 3 Context: Patient states that she slipped on a wet step and fell down 3 steps onto a grassy surface. Patient states she hit her head on the grass. Patient denies any loss of consciousness, nausea or vomiting. Patient complains of right shoulder pain and states that her thinks that she seems to be having difficulty concentrating when she is speaking. Associated Symptoms: Other - Right shoulder pain. denies: Headache Exacerbated by: Movement Relieved by: Denies Similar symptoms previously: No Recently seen / treated by doctor: No - ROS ROS below otherwise negative: Yes Systems Reviewed and Negative: Yes All other systems reviewed and negative - CONSTITUTIONAL Constitutional: DENIES: Fever - NEURO Neurology: DENIES: Headache, Weakness, Vision blurred - GASTROINTESTINAL Gastrointestinal: DENIES: Nausea, Patient vomiting - REPRODUCTIVE Reproductive: DENIES: : - MUSCULOSKELETAL Musculoskeletal: REPORTS: Extremity pain - DERM Skin Color: Normal Skin Problems: None Past Medical History - General Information source: Patient - Social History Smoking Status: Current Every Day Smoker Smoking Education Provided: Yes Frequency of alcohol use: None Drug Abuse: None Occupation: None Lives with: Family Family History: Arthritis, CAD, COPD, CVA, DM, Hyperlipidemia, Hypertension. denies: Malignancy, Thyroid Disfunction - Past Medical History Cardiac Medical History: Reports: Hx Hypertension Pulmonary Medical History: Reports: Hx Asthma Renal/ Medical History: Reports: Hx Ovarian Cysts. Denies: Hx Peritoneal Dialysis GI Medical History: Reports: Hx Gastroesophageal Reflux Disease Musculoskeltal Medical History: Reports Hx Arthritis Past Surgical History: Reports: Hx Gynecologic Surgery - D&C, Hx Orthopedic Surgery - lumbar disc - Immunizations Hx Diphtheria, Pertussis, Tetanus Vaccination: Yes Vertical Provider Document - CONSTITUTIONAL Agree With Documented VS: Yes Exam Limitations: No Limitations General Appearance: WD/WN, No Apparent Distress - INFECTION CONTROL TRAVEL OUTSIDE OF THE [place] IN LAST 30 DAYS: No - HEENT HEENT: Atraumatic, Normal ENT Exam, Normocephalic, PERRLA - NECK Neck: Normal Inspection, Supple - RESPIRATORY Respiratory: Breath Sounds Normal, No Respiratory Distress, Chest Non-Tender O2 Sat by Pulse Oximetry: 97 - CARDIOVASCULAR Cardiovascular: Regular Rate, Regular Rhythm, No Murmur Pulses: Normal: Radial - BACK Back: Abnormal Inspection - Trapezius muscle tenderness. negative: CVA Tenderness-Right, CVA Tenderness-Left - MUSCULOSKELETAL/EXTREMETIES Musculoskeletal/Extremeties: MAEW, FROM, Tender - Right shoulder joint tenderness with extension and abduction, no dislocation, no deformity, No Edema - NEURO Level of Consciousness: Awake, Appropriate Motor/Sensory: No Motor Deficit, No Sensory Deficit Notes: Cranial nerves II through XII grossly intact, no focal neurologic deficit. Patient able to give good recall of specific medications, dosages and clarification on medication regimen as well as events and history of fall. - DERM Integumentary: Warm, Dry, No Rash Course - Re-evaluation Re-evalutation: 07/02/17 05:14 Pt has no evidence of a skull fracture, no occipital, parietal, or temporal scalp hematoma. No LOC, and no severe mechanism of injury. Patient with no focal neurologic deficit with cranial nerve testing. 07/02/17 06:49 The patient has been informed that they may have pre-hypertension or hypertension based on a blood pressure reading in the emergency department. I recommend that patient call the primary care provider listed on their discharge instructions or a physician of their choice by this week to arrange follow-up for further evaluation of possible pre-hypertension or hypertension. Patient awake, alert and oriented, Rahul Coma Scale 15. No focal neurologic deficit. Speech clear without abnormality. No concern for traumatic brain injury. Patient's findings consistent with postconcussive syndrome. Good return precautions provided - Vital Signs Vital signs: Temp Pulse Resp BP Pulse Ox 98.1 F 77 18 141/94 H 97 07/02/17 04:42 07/02/17 04:42 07/02/17 04:42 07/02/17 04:42 07/02/17 04:42 - Diagnostic Test Radiology reviewed: Reports reviewed Procedures - Immobilization Right Shoulder Pre-Proc Neuro Vasc Exam: Normal Immobilizer type: Sling Performed by: PCT Post-Proc Neuro Vasc Exam: Normal Alignment checked and good: Yes Discharge - Discharge Clinical Impression: Elevated blood pressure reading, Post concussion syndrome Sprain of shoulder, right Qualifiers: Encounter type: initial encounter Shoulder sprain type: unspecified sprain Qualified Code(s): S43.401A - Unspecified sprain of right shoulder joint, initial encounter Condition: Stable Disposition: HOME, SELF-CARE Instructions: Acetaminophen, Ice & Elevation ([facility]), Post-Concussion Syndrome ( [facility]), Shoulder Injury ([facility]), Temporary Sling ([facility]) Additional Instructions: Return immediately for any new or worsening symptoms Followup with your primary care provider, call tomorrow to make a followup appointment Follow-up with orthopedic doctor for any continued pain or problems Wear sling for the next 3 days and then remove. If still having pain follow-up with orthopedic doctor Prescriptions: Naproxen [Naprosyn 250 Nmg Tablet] 1 tab PO BID #14 tablet Forms: Elevated Blood Pressure, Smoking Cessation Education Referrals: JIM GU NP [NURSE PRACTITIONER] - Follow up tomorrow [facility] [Provider Group] - Follow up as needed
--- NOTE | 2017-07-02 06:22 | RADIOLOGY REPORT (SQ) ---
EXAM DESCRIPTION: SHOULDER RIGHT 2 OR MORE VIEWS CLINICAL HISTORY: fall, shoulder pain COMPARISON: None. FINDINGS: 3 views of the right shoulder. No acute fracture or dislocation. Normal osseous mineralization. No fracture of the right ribs. No right apical pneumothorax identified. IMPRESSION: No acute fracture or dislocation.
[2017-07-02 07:01] VITALS: BP 129/88
== END 2017-07-02 07:02 | disposition home or self-care (01) ==
LOC: ER 04:40
DX: S43.401A Unspecified sprain of right shoulder joint, initial encounter (principal); M25.511 Pain in right shoulder; W10.9XXA Fall (on) (from) unspecified stairs and steps, initial encounter; F07.81 Postconcussional syndrome; F17.200 Nicotine dependence, unspecified, uncomplicated; I10 Essential (primary) hypertension; J45.909 Unspecified asthma, uncomplicated
CPT/HCPCS: 99283; 73030; J3490

== ENCOUNTER → 2017-07-02 | Outpatient (CLI) | payer MEDICAID ==
--- NOTE | 2017-07-02 14:00 | RADIOLOGY REPORT (SQ) ---
EXAM DESCRIPTION: LUMBAR SPINE COMPLETE COMPLETED DATE/TIME: 07/02/2017 12:45 pm REASON FOR STUDY: OTHER INTERVERTEBRAL DISC DEGENERATION, LUMBAR REGION M51.36 OTHER INTERVERTEBRAL DISC DEGENERATION, LUMBAR REGION COMPARISON: 10/18/2009 NUMBER OF VIEWS: Five views including obliques. TECHNIQUE: AP, lateral, oblique, and sacral radiographic images acquired of the lumbar spine. LIMITATIONS: None. FINDINGS: There is a mild convex left scoliosis. There is disc space narrowing and osteophyte forma tion at multiple levels. SI joints are unremarkable. IMPRESSION: Spondylosis. Scoliosis. TECHNICAL DOCUMENTATION: JOB ID: [id number] [employer]- All Rights Reserved
== END ==
LOC: OD 12:21
PROVIDERS: ATTEND Physician Assistant
DX: M51.36 Other intervertebral disc degeneration, lumbar region (principal); M47.896 Other spondylosis, lumbar region
CPT/HCPCS: 72110

== ENCOUNTER 2017-10-15 17:01 | Emergency (ER) | payer MEDICAID ==
--- NOTE | 2017-10-15 18:06 | ER Document Report ---
ED Medical Screen (RME) - General Chief Complaint: Vaginal Bleeding Stated Complaint: VAGINAL BLEEDING Time Seen by Provider: 10/15/17 17:57 Notes: RAPID MEDICAL EVALUATION DISCLOSURE I have seen this patient as part of a Rapid Medical Evaluation and, if applicable, placed any initially appropriate orders. The patient will be seen and fully evaluated, including a full history and physical exam, by a provider ( in Main ED or Fast Track) when a room becomes available. 19-year-old female here with complaints of vaginal bleeding daily with clots ongoing for the past 3 months with associated lower abdominal cramping. She was seen at [facility] several weeks ago and a transvaginal ultrasound did not show any abnormalities, per her report. She was given a course of Provera for 5 days by her AUDITOR and then a second course of Provera when she went to the [facility] emergency department but this did not help. Her hemoglobin was 9.0 at the [facility] emergency department but 3 days ago, her PCP tested it and it was 7.6. She is here because her lightheadedness has been progressively getting worse and now to the point where she is having near syncopal events but has not yet had full syncope. EXAM CTAB RRR No abdominal tenderness TRAVEL OUTSIDE OF THE U.S. IN LAST 30 DAYS: No - Related Data Allergies/Adverse Reactions: codeine Allergy (Verified 07/02/17 04:41) Past Medical History - General Last Menstrual Period: unknown - Social History Chew tobacco use (# tins/day): No Frequency of alcohol use: None Drug Abuse: None - Past Medical History Cardiac Medical History: Reports: Hx Hypertension Pulmonary Medical History: Reports: Hx Asthma Renal/ Medical History: Reports: Hx Ovarian Cysts. Denies: Hx Peritoneal Dialysis GI Medical History: Reports: Hx Gastroesophageal Reflux Disease Musculoskeltal Medical History: Reports Hx Arthritis Past Surgical History: Reports: Hx Gynecologic Surgery - D&C, Hx Orthopedic Surgery - lumbar disc - Immunizations Hx Diphtheria, Pertussis, Tetanus Vaccination: Yes Physical Exam - Vital signs Vitals: Temp Pulse Resp BP Pulse Ox 98.7 F 101 H 18 141/86 H 99 10/15/17 17:41 10/15/17 17:41 10/15/17 17:41 10/15/17 17:41 10/15/17 17:41 Course - Vital Signs Vital signs: Temp Pulse Resp BP Pulse Ox 98.7 F 101 H 18 141/86 H 99 10/15/17 17:41 10/15/17 17:41 10/15/17 17:41 10/15/17 17:41 10/15/17 17:41
[2017-10-15] MEDS ORDERED: ACETAMINOPHEN 325 MG TABLET PO ONE (19:16)
[2017-10-15] MEDS ORDERED: ACETAMINOPHEN 325 MG TABLET ONE (19:20)
[2017-10-15 19:30] LABS: ABSOLUTE BASOPHILS # (AUTO) 0.1 10^3/uL (0.0-0.2); ABSOLUTE EOSINOPHILS # (AUTO) 0.2 10^3/uL (0.0-0.6); ABSOLUTE LYMPHOCYTES (AUTO) 3.5 10^3/uL (0.5-4.7); ABSOLUTE MONOCYTES (AUTO) 0.6 10^3/uL (0.1-1.4); ABSOLUTE NEUT (AUTO) 7.7 10^3/uL (1.7-8.2); BASOPHILS % (AUTO) 0.5 % (0-2); EOSINOPHILS % (AUTO) 1.6 % (0-6); HEMATOCRIT 26.8 % (36.0-47.0); LYMPHOCYTES % (AUTO) 29.2 % (13-45); MEAN CORPUSCULAR HEMOGLOBIN 19.3 pg (27.0-33.4); MEAN CORPUSCULAR HGB CONC 29.4 g/dL (32.0-36.0); MEAN CORPUSCULAR VOLUME 66 fl (80-97); MONOCYTES % (AUTO) 4.9 % (3-13); PLATELET COUNT 465 10^3/uL (150-450); RED BLOOD COUNT 4.09 10^6/uL (3.72-5.28); RED CELL DISTRIBUTION WIDTH 17.8 % (11.5-14.0); SEGMENTED NEUTROPHILS % (AUTO) 63.8 % (42-78); TOTAL CELLS COUNTED % (AUTO) 100 %; WHITE BLOOD COUNT 12.1 10^3/uL (4.0-10.5)
[2017-10-15 19:48] LABS: ANION GAP 13 (5-19); BLOOD UREA NITROGEN 9 mg/dL (7-20); CALCIUM 9.4 mg/dL (8.4-10.2); CARBON DIOXIDE 25 mmol/L (22-30); CHLORIDE 105 mmol/L (98-107); GLUCOSE 92 mg/dL (75-110); POTASSIUM 4.5 mmol/L (3.6-5.0); SODIUM 143.1 mmol/L (137-145)
[2017-10-15 20:03] LABS: HEMOGLOBIN 7.9 g/dL (12.0-15.5)
--- NOTE | 2017-10-15 22:23 | ER Document Report ---
ED General <AUGIE CARPENTER - Last Filed: 10/15/17 22:31> - General Mode of Arrival: Ambulatory Information source: Patient TRAVEL OUTSIDE OF THE [place]. IN LAST 30 DAYS: No <HEIDY PAYTON - Last Filed: 10/15/17 22:42> - General Chief Complaint: Vaginal Bleeding Stated Complaint: VAGINAL BLEEDING Time Seen by Provider: 10/15/17 17:57 Notes: Patient is a 27 year old female with a history of PCOS presents to the emergency department complaining of heavy vaginal bleeding onset 1 week and dizziness onset today. Patient states that she has had ongoing vaginal bleeding for the last 3 months and states she has seen her OBGYN, Dr. Marquez, and was prescribed a 5 day course of 20mg of Provera. She states Provera did not help alleviate her symptoms. Patient also states that she has received multiple blood transfusions since her symptoms were onset. She reports being seen at [facility] and receiving a transvaginal ultrasound which did not show any abnormalities. Patient states she has seen her PCP, [facility], within the last week and was found to have a hemoglobin of 7.6. Patient states she normally takes Metformin but has not refilled her prescription. (HEIDY PAYTON) - Related Data Allergies/Adverse Reactions: codeine Allergy (Verified 07/02/17 04:41) Past Medical History - General Information source: Patient Last Menstrual Period: unknown - Social History Smoking Status: Current Every Day Smoker Chew tobacco use (# tins/day): No Frequency of alcohol use: None Drug Abuse: None Family History: Arthritis, CAD, COPD, CVA, DM, Hyperlipidemia, Hypertension Patient has suicidal ideation: No Patient has homicidal ideation: No - Past Medical History Cardiac Medical History: Reports: Hx Hypertension Pulmonary Medical History: Reports: Hx Asthma Renal/ Medical History: Reports: Hx Ovarian Cysts GI Medical History: Reports: Hx Gastroesophageal Reflux Disease Musculoskeltal Medical History: Reports Hx Arthritis Past Surgical History: Reports: Hx Gynecologic Surgery - D&C, Hx Orthopedic Surgery - lumbar disc - Immunizations Hx Diphtheria, Pertussis, Tetanus Vaccination: Yes <HEIDY PAYTON - Last Filed: 10/15/17 22:42> Review of Systems - Review of Systems Constitutional: No symptoms reported EENT: No symptoms reported Cardiovascular: See HPI, Dizziness Respiratory: No symptoms reported Gastrointestinal: No symptoms reported Genitourinary: No symptoms reported Female Genitourinary: See HPI, Vaginal bleeding Musculoskeletal: No symptoms reported Skin: No symptoms reported Hematologic/Lymphatic: No symptoms reported Neurological/Psychological: No symptoms reported -: Yes All other systems reviewed and negative <HEIDY PAYTON - Last Filed: 10/15/17 22:42> Physical Exam - General General appearance: Appears well, Alert In distress: None - HEENT Head: Normocephalic, Atraumatic Eyes: Normal Conjunctiva: Normal Extraocular movements intact: Yes Pupils: PERRL Neck: Normal - Respiratory Respiratory status: No respiratory distress Chest status: Nontender Breath sounds: Normal Chest palpation: Normal - Cardiovascular Rhythm: Regular Heart sounds: Normal auscultation Murmur: No Friction rub: No Gallop: None auscultated - Abdominal Inspection: Morbidly Obese Distension: No distension Bowel sounds: Normal Tenderness: Nontender Organomegaly: No organomegaly - Back Back: Normal - Extremities General upper extremity: Normal ROM General lower extremity: Normal ROM - Neurological Neuro grossly intact: Yes Cognition: Normal Orientation: AAOx4 Liberty Coma Scale Eye Opening: Spontaneous Liberty Coma Scale Verbal: Oriented Rahul Coma Scale Motor: Obeys Commands Liberty Coma Scale Total: 15 Speech: Normal - Psychological Associated symptoms: Normal affect, Normal mood - Skin Skin Temperature: Warm Skin Moisture: Dry Skin Color: Normal <HEIDY PAYTON - Last Filed: 10/15/17 22:42> - Vital signs Vitals: Temp Pulse Resp BP Pulse Ox 98.7 F 101 H 18 141/86 H 99 10/15/17 17:41 10/15/17 17:41 10/15/17 17:41 10/15/17 17:41 10/15/17 17:41 Course - Laboratory Result Diagrams: 10/15/17 19:12 10/15/17 19:12 - Consults Dr. Tejada Time consulted: 22:25 Consulted provider: follow-up in office - Have patient come to the office tomorrow to be seen. <AUGIE CARPENTER - Last Filed: 10/15/17 22:31> - Laboratory Result Diagrams: 10/15/17 19:12 10/15/17 19:12 <HEIDY PAYTON - Last Filed: 10/15/17 22:42> - Re-evaluation Re-evalutation: 10/15/17 22:31 Patient's hemoglobin 7.9 tonight, it has been this level or lower on previous visits. Transfusion is not necessary at this time as the patient tolerates his hemoglobin quite well. She claims no one has had a discussion with her about uterine ablation, her boyfriend is adamantly opposed to a loss of ability to have more children. She claims no one has discussed the risks of repeat transfusions with her, however Dr. Murray overheard me discussing this with Dr. Tejada and states that he had had those discussions with her previously. She also states that she needs a refill for her metformin, even though she saw her primary care provider just a few days ago. She has been to the emergency room and [place] multiple times for the same problem and to get blood transfusions. It is concerning that she goes to multiple locations and fragments her care. ( AUGIE CARPENTER) - Vital Signs Vital signs: Temp Pulse Resp BP Pulse Ox 98.7 F 91 18 135/84 H 99 10/15/17 17:41 10/15/17 22:11 10/15/17 17:41 10/15/17 22:11 10/15/17 17:41 - Laboratory Laboratory results interpreted by me: 10/15/17 19:12 WBC 12.1 H Hgb 7.9 L Hct 26.8 L MCV 66 L MCH 19.3 L MCHC 29.4 L RDW 17.8 H Plt Count 465 H Discharge <AUGIE CARPENTER - Last Filed: 10/15/17 22:31> <HEIDY PAYTON - Last Filed: 10/15/17 22:42> - Discharge Clinical Impression: Premenopausal menorrhagia, Dysfunctional uterine bleeding Anemia Qualifiers: Anemia type: iron deficiency Iron deficiency anemia type: chronic blood loss Qualified Code(s): D50.0 - Iron deficiency anemia secondary to blood loss ( chronic) Additional Instructions: Follow-up with [facility] tomorrow in the office. RETURN TO THE EMERGENCY ROOM IF ANY NEW OR WORSENING SYMPTOMS. Referrals: [facility] [Provider Group] - Follow up tomorrow Scribe Attestation: 10/15/17 22:30 I personally performed the services described in the documentation, reviewed and edited the documentation which was dictated to the scribe in my presence, and it accurately records my words and actions. (AUGIE CARPENTER) Scribe Documentation - Scribe Written by Rahul:: Rahul Ibarra, 10/15/2017 22:39 acting as scribe for :: Bishop <HEIDY PAYTON - Last Filed: 10/15/17 22:42>
[2017-10-15] MEDS ORDERED: MEDROXYPROGESTERONE ACET 10 MG TABLET PO ONE (22:27)
[2017-10-15 23:06] VITALS: BP 132/68
== END 2017-10-15 23:06 | disposition home or self-care (01) ==
LOC: ER 17:01
DX: N95.0 Postmenopausal bleeding (principal); D50.0 Iron deficiency anemia secondary to blood loss (chronic); E28.2 Polycystic ovarian syndrome; T38.3X6A Underdosing of insulin and oral hypoglycemic [antidiabetic] drugs, initial encounter; Z91.128 Patient's intentional underdosing of medication regimen for other reason; Z91.14 Patient's other noncompliance with medication regimen; N93.8 Other specified abnormal uterine and vaginal bleeding; R42 Dizziness and giddiness; F17.200 Nicotine dependence, unspecified, uncomplicated; I10 Essential (primary) hypertension; J45.909 Unspecified asthma, uncomplicated; Z88.5 Allergy status to narcotic agent
CPT/HCPCS: 99284; 86900; 86901; 36415; 86850; 85025; 81025; 80048; J3490 ×2

== ENCOUNTER 2018-05-26 00:14 | Emergency (ER) | payer MEDICAID ==
--- NOTE | 2018-05-26 00:54 | ER Document Report ---
ED General - General TRAVEL OUTSIDE OF THE [place]. IN LAST 30 DAYS: No <ARMAAN VAUGHAN - Last Filed: 05/26/18 06:37> <LATRELL KAISER - Last Filed: 05/26/18 16:32> - General Chief Complaint: Abnormal Lab Results Stated Complaint: HEADACHE,WEAKNESS Time Seen by Provider: 05/26/18 00:41 Notes: Patient is a 19-year-old female presents to the emergency department for abnormal lab results. Patient states she has an extensive history of PCO S and heavy menstrual periods causing her anemia with a total of 3 blood transfusions within the last 3 years. Patient states on she went to her primary care doctor Jim Thomas because of a headache and weakness. States at her isis monzon's office she got blood work and had a urine test. States the doctor told her that her urine was infected and placed her on Cipro. She did not get the results of her blood test until today. Patient states her primary care doctor called her today and told her that her hemoglobin was 6.2 and she needed to present to the emergency room for transfusion. Patient states her last menstrual period was a month ago states today she noticed a scant amount of spotting at this time but states she is supposed to start her period any day now. Patient is very confused stating that typically her anemia is caused by her menstrual bleeding but she has not had any abnormal bleeding recently so she is unsure why her hemoglobin is low. Patient denies any vomiting of blood or any dark or bright red stool. Patient's only complaint right now is a generalized weakness. Patient denies chest pain, shortness of breath, nausea, vomiting. Past medical history: PCO S, anemia, degenerative disc disease, GERD, scoliosis, asthma Medications: Omeprazole, hydrocodone, fluoxetine, Cipro Allergies: Codeine (ARMAAN VAUGHAN) - Related Data Allergies/Adverse Reactions: codeine Allergy (Verified 07/02/17 04:41) Past Medical History - General Information source: Patient - Social History Smoking Status: Unknown if Ever Smoked Family History: Arthritis, CAD, COPD, CVA, DM, Hyperlipidemia, Hypertension Patient has suicidal ideation: No Patient has homicidal ideation: No - Past Medical History Cardiac Medical History: Reports: Hx Hypertension Pulmonary Medical History: Reports: Hx Asthma Renal/ Medical History: Reports: Hx Ovarian Cysts. Denies: Hx Peritoneal Dialysis GI Medical History: Reports: Hx Gastroesophageal Reflux Disease Musculoskeletal Medical History: Reports Hx Arthritis Past Surgical History: Reports: Hx Gynecologic Surgery - D&C, Hx Orthopedic Surgery - lumbar disc - Immunizations Hx Diphtheria, Pertussis, Tetanus Vaccination: Yes <ARMAAN VAUGHAN - Last Filed: 05/26/18 06:37> Review of Systems - Review of Systems Constitutional: See HPI EENT: No symptoms reported Cardiovascular: No symptoms reported Respiratory: No symptoms reported Gastrointestinal: No symptoms reported Genitourinary: No symptoms reported Female Genitourinary: See HPI Musculoskeletal: No symptoms reported Skin: See HPI Hematologic/Lymphatic: See HPI Neurological/Psychological: See HPI <JAZZ VAUGHANADAIRRUSLAN - Last Filed: 05/26/18 06:37> Physical Exam <ARMAAN VAUGHAN - Last Filed: 05/26/18 06:37> - Vital signs Vitals: Temp Pulse Resp BP Pulse Ox 98.4 F 89 20 147/80 H 100 05/26/18 00:32 05/26/18 00:32 05/26/18 00:32 05/26/18 00:32 05/26/18 00:32 - Notes Notes: GENERAL: Morbidly obese, alert, interacts well. No acute distress. Pallor noted morbidly obese HEAD: Normocephalic, atraumatic. EYES: Pupils equal, round, and reactive to light. Extraocular movements intact. ENT: Oral mucosa moist, tongue midline. Nares patent, no nasal septal hematoma, TM's intact. NECK: Full range of motion. Supple. Trachea midline. LUNGS: Clear to auscultation bilaterally, no wheezes, rales, or rhonchi. No respiratory distress. HEART: Regular rate and rhythm. No murmur ABDOMEN: Soft, non-tender. Non-distended. Bowel sounds present in all 4 quadrants. EXTREMITIES: Moves all 4 extremities spontaneously. No edema, normal radial and dorsalis pedis pulses bilaterally. No cyanosis. BACK: no cervical, thoracic, lumbar midline tenderness. No saddle anesthesia, normal distal neurovascular exam. NEUROLOGICAL: Alert and oriented x3. Normal speech. cranial nerves II through XII grossly intact PSYCH: Normal affect, normal mood. SKIN: Warm, dry, normal turgor. No rashes or lesions noted. Pallor (WOOLBRIGHT,JESSIELYN) Course - Laboratory Result Diagrams: 05/26/18 00:56 05/26/18 00:56 <ARMAAN VAUGHAN - Last Filed: 05/26/18 06:37> - Laboratory Result Diagrams: 05/26/18 10:22 05/26/18 00:56 <LATRELL KAISER - Last Filed: 05/26/18 16:32> - Re-evaluation Re-evalutation: 05/26/18 04:52 Patient's hemoglobin and hematocrit noted to be 6.6 and 23.4 respectively. Her MCV is noted to be 60. In discussing with the patient she has never been placed on iron supplements or told she has iron deficient anemia. Pt stated he doctors always told her in was due to her heavy menstrual cycles. Her labs do reveal a microcytic anemia potentially iron deficiency. She has no signs of electrolyte abnormalities no signs of urinary tract infection on her labs. Occult stool negative in the emergency room. 2 units of blood ordered and transfused via protocol. Discussed at length with patient need to take iron supplements and also Colace due to iron constipating properties. Discussed close follow-up with primary care provider and return precautions. Patient stable for discharge. (ARMAAN VAUGHAN) 05/26/18 10:59 Recheck of patient and recheck of H:H reveals a mild increase of her hemaglobin to 7.3. Reviewed with Dr. Alas. We will give 1 more unit of blood and send her home with provera 10mg daily x5 days. 05/26/18 15:38 Pt has no new concerns or complaints and is feeling much better. She will be sent home with iron, colace, and provera. Pt in agreement. She will be contacting her OBGYN/PCM this week for f/u. Patient is to return with any other worsening/concerning symptoms as reviewed. Patient is in agreement. Dr. Alas in agreement with dispo at this time. No need to recheck HH. (LATRELL KAISER) - Vital Signs Vital signs: Temp Pulse Resp BP Pulse Ox 98.4 F 80 18 117/61 100 05/26/18 15:15 05/26/18 15:15 05/26/18 15:15 05/26/18 15:15 05/26/18 15:15 - Laboratory Laboratory results interpreted by me: 05/26/18 05/26/18 05/26/18 00:56 00:56 00:56 WBC 13.0 H Hgb 6.6 L Hct 23.4 L MCV 60 L MCH 16.8 L MCHC 28.1 L RDW 20.1 H Absolute Neutrophils 8.6 H Chloride 108 H Urine Protein Urine Blood Urine Urobilinogen Crossmatch See Detail 05/26/18 05/26/18 01:29 10:22 WBC Hgb 7.3 L Hct 24.5 L MCV 63 L MCH 18.6 L MCHC 29.6 L RDW 22.7 H Absolute Neutrophils Chloride Urine Protein 30 H Urine Blood MODERATE H Urine Urobilinogen 4.0 H Crossmatch Discharge <ARMAAN VAUGHAN - Last Filed: 05/26/18 06:37> <LATRELL KAISER - Last Filed: 05/26/18 16:32> - Discharge Clinical Impression: Low hemoglobin Anemia Qualifiers: Anemia type: iron deficiency Iron deficiency anemia type: unspecified iron deficiency Qualified Code(s): D50.9 - Iron deficiency anemia, unspecified Condition: Stable Disposition: HOME, SELF-CARE Instructions: Anemia ([facility]), Anemia, Iron Deficiency ([facility]) Additional Instructions: As we discussed you have been seen and treated in the emergency department for low hemoglobin. You have been transfused with blood products. Your labs do reveal that you may have an iron deficiency anemia. You should take iron as prescribed. You should also take stool softeners as iron may constipate you. Please make an appointment with your primary care provider in the next 24-48 hours for follow-up. Please return to the emergency room for any other concerning symptoms. Prescriptions: Docusate Sodium [Colace 100 mg Capsule] 100 mg PO DAILY #30 capsule Ferrous Sulfate 325 mg PO TID 30 Days tablet. Medroxyprogesterone Acet [Provera 10 Mg Tablet] 10 mg PO DAILY #5 tablet Referrals: JIM THOMAS, [facility] FITTER [Primary Care Provider] - Follow up as needed
[2018-05-26 01:14] LABS: ABSOLUTE BASOPHILS # (AUTO) 0.1 10^3/uL (0.0-0.2); ABSOLUTE EOSINOPHILS # (AUTO) 0.3 10^3/uL (0.0-0.6); ABSOLUTE LYMPHOCYTES (AUTO) 3.4 10^3/uL (0.5-4.7); ABSOLUTE MONOCYTES (AUTO) 0.7 10^3/uL (0.1-1.4); ABSOLUTE NEUT (AUTO) 8.6 10^3/uL (1.7-8.2); BASOPHILS % (AUTO) 0.4 % (0-2); HEMATOCRIT 23.4 % (36.0-47.0); LYMPHOCYTES % (AUTO) 26.4 % (13-45); MEAN CORPUSCULAR HEMOGLOBIN 16.8 pg (27.0-33.4); MEAN CORPUSCULAR HGB CONC 28.1 g/dL (32.0-36.0); MONOCYTES % (AUTO) 5.5 % (3-13); PLATELET COUNT 435 10^3/uL (150-450); RED BLOOD COUNT 3.92 10^6/uL (3.72-5.28); RED CELL DISTRIBUTION WIDTH 20.1 % (11.5-14.0); SEGMENTED NEUTROPHILS % (AUTO) 65.7 % (42-78); TOTAL CELLS COUNTED % (AUTO) 100 %
[2018-05-26 01:25] LABS: HEMOGLOBIN 6.6 g/dL (12.0-15.5)
[2018-05-26 01:29] LABS: ALANINE AMINOTRANSFERASE 19 U/L (9-52); ALBUMIN 3.7 g/dL (3.5-5.0); ALKALINE PHOSPHATASE 82 U/L (38-126); ANION GAP 8 (5-19); ASPARTATE AMINO TRANSFERASE 14 U/L (14-36); BILIRUBIN,DIRECT 0.2 mg/dL (0.0-0.4); BILIRUBIN,TOTAL 0.4 mg/dL (0.2-1.3); BLOOD UREA NITROGEN 8 mg/dL (7-20); CALCIUM 9.2 mg/dL (8.4-10.2); CARBON DIOXIDE 26 mmol/L (22-30); CHLORIDE 108 mmol/L (98-107); GLUCOSE 106 mg/dL (75-110); POTASSIUM 3.8 mmol/L (3.6-5.0); SODIUM 142.3 mmol/L (137-145); TOTAL PROTEIN 6.8 g/dL (6.3-8.2)
[2018-05-26 01:32] LABS: ANISOCYTOSIS 2+; POLYCHROMASIA 1+
[2018-05-26 01:33] LABS: PLATELET COMMENT ADEQUATE
[2018-05-26 01:34] LABS: STOMATOCYTES 1+
[2018-05-26 01:35] LABS: MEAN CORPUSCULAR VOLUME 60 fl (80-97)
[2018-05-26] MEDS ORDERED: NORMAL SALINE 250 ML IV PRN ×3 (01:58→10:59)
[2018-05-26 01:59] LABS: APPEARANCE,URINE SLIGHTLY-CLOUDY; BILIRUBIN,URINE NEGATIVE (NEGATIVE); COLOR,URINE YELLOW; GLUCOSE, URINE NEGATIVE (NEGATIVE); KETONES,URINE NEGATIVE (NEGATIVE); LEUKOCYTE ESTERASE,URINE NEGATIVE (NEGATIVE); NITRITE,URINE NEGATIVE (NEGATIVE); PROTEIN,URINE 30 mg/dL (NEGATIVE); URINE SPECIFIC GRAVITY 1.026
[2018-05-26 10:43] LABS: HEMATOCRIT 24.5 % (36.0-47.0); MEAN CORPUSCULAR HEMOGLOBIN 18.6 pg (27.0-33.4); MEAN CORPUSCULAR HGB CONC 29.6 g/dL (32.0-36.0); MEAN CORPUSCULAR VOLUME 63 fl (80-97); PLATELET COUNT 351 10^3/uL (150-450); RED BLOOD COUNT 3.92 10^6/uL (3.72-5.28); RED CELL DISTRIBUTION WIDTH 22.7 % (11.5-14.0)
[2018-05-26 10:45] LABS: HEMOGLOBIN 7.3 g/dL (12.0-15.5)
[2018-05-26 16:47] LABS: ABSOLUTE BASOPHILS # (AUTO) 0.1 10^3/uL (0.0-0.2); ABSOLUTE EOSINOPHILS # (AUTO) 0.2 10^3/uL (0.0-0.6); ABSOLUTE LYMPHOCYTES (AUTO) 2.8 10^3/uL (0.5-4.7); ABSOLUTE MONOCYTES (AUTO) 0.5 10^3/uL (0.1-1.4); ABSOLUTE NEUT (AUTO) 5.3 10^3/uL (1.7-8.2); BASOPHILS % (AUTO) 0.8 % (0-2); EOSINOPHILS % (AUTO) 2.6 % (0-6); HEMATOCRIT 30.4 % (36.0-47.0); HEMOGLOBIN 9.1 g/dL (12.0-15.5); LYMPHOCYTES % (AUTO) 32.1 % (13-45); MEAN CORPUSCULAR HEMOGLOBIN 19.3 pg (27.0-33.4); MEAN CORPUSCULAR HGB CONC 29.8 g/dL (32.0-36.0); MEAN CORPUSCULAR VOLUME 65 fl (80-97); MONOCYTES % (AUTO) 5.2 % (3-13); RED BLOOD COUNT 4.69 10^6/uL (3.72-5.28); RED CELL DISTRIBUTION WIDTH 25.5 % (11.5-14.0); SEGMENTED NEUTROPHILS % (AUTO) 59.3 % (42-78); TOTAL CELLS COUNTED % (AUTO) 100 %; WHITE BLOOD COUNT 8.9 10^3/uL (4.0-10.5)
[2018-05-26 17:04] LABS: ANISOCYTOSIS 3+; OVALOCYTES 1+; PLATELET COUNT 326 10^3/uL (150-450); PLATELET LARGE PRESENT; POIKILOCYTOSIS 1+; POLYCHROMASIA 1+; TEAR DROP CELLS SLIGHT
[2018-05-26 17:05] LABS: PLATELET COMMENT ADEQUATE
[2018-05-26 17:06] VITALS: BP 120/64
[2018-05-27 11:48] LABS: PATH REVIEW PATHOLOGIST REVIEWED
== END 2018-05-26 16:28 | disposition home or self-care (01) ==
LOC: ER 00:14
DX: D50.9 Iron deficiency anemia, unspecified (principal); R51 Headache; R53.1 Weakness; Z79.899 Other long term (current) drug therapy; I10 Essential (primary) hypertension; J45.909 Unspecified asthma, uncomplicated; E66.01 Morbid (severe) obesity due to excess calories
CPT/HCPCS: 99284; 86900; 86901; 36415; 36430; 86850; 86922; 85025; 85027; 81025; 80053; 81001; 86920; 86902 ×3; P9016